=== PATIENT | female | born 1980 | race Caucasian/White ===

== ENCOUNTER 2018-03-10 04:30 | Emergency (ER) | payer OTHER ==
[2018-03-10 04:43] VITALS: RESP 18; TEMP 98.3
[2018-03-10] MEDS ORDERED: diphenhydrAMINE 50 MG CAP PO STA (05:06)
[2018-03-10] MEDS ORDERED: predniSONE 20 MG TAB PO STA (05:06)
[2018-03-10] MEDS ORDERED: FAMOTIDINE 20 MG TAB PO STA (05:06)
[2018-03-10] MEDS ORDERED: ALBUTEROL NEBULIZED 2.5 MG/3 ML INHALATION STA (05:11)
--- NOTE | 2018-03-10 05:14 | ED ---
Allergic Reaction HPI - General Chief complaint: Allergic Reaction Stated complaint: Allergic Reaction Time Seen by Provider: 03/10/18 05:06 Source: patient Mode of arrival: ambulatory Limitations: no limitations - History of Present Illness Initial Comments: Patient's a 37-year-old woman who presents to be evaluated for suspected ALLERGIC reaction. The patient states that she thinks she was exposed to mold which she has a known ALLERGY to area she started having hives to the upper trunk and neck as well as the left arm. She states that she also noted that her throat was a little scratchy in her voice was a little hoarse. She denies shortness of breath. No oral swelling. MD Complaint: allergic reaction, hives -: hour(s) Exposure: other (Possible mold exposure) Symptoms: rash, itching, hoarseness Severity: mild Treatment Prior to Arrival: none - Related Data Home Medications Medication Instructions Recorded Confirmed OXcarbazepine [Trileptal] 300 mg PO BID 04/08/14 03/10/18 Previous Rx's Medication Instructions Recorded Ibuprofen [Motrin] 600 mg PO Q8HR PRN #30 tab 07/07/14 Famotidine [Pepcid] 20 mg PO BID #14 tablet 03/10/18 diphenhydrAMINE [Benadryl] 50 mg PO QID PRN #20 capsule 03/10/18 predniSONE 20 mg PO BID #8 tab 03/10/18 Allergies Allergy/AdvReac Type Severity Reaction Status Date / Time amoxicillin Allergy Anaphylaxis Verified 03/10/18 04:43 Penicillins Allergy Anaphylaxis Verified 03/10/18 04:43 Review of Systems ROS Statement: Those systems with pertinent positive or pertinent negative responses have been documented in the HPI. ROS Other: All systems not noted in ROS Statement are negative. Constitutional: Denies: fever, chills ENT: Denies: throat pain Respiratory: Reports: wheezes. Denies: cough, dyspnea Cardiovascular: Denies: chest pain, palpitations Gastrointestinal: Denies: abdominal pain, nausea, vomiting Skin: Reports: rash Neurological: Denies: headache Past Medical History Past Medical History: Fibromyalgia Additional Past Medical History / Comment(s): chiari malformation, osteopenia, migraines, vertigo,chronic neck/shoulder pain History of Any Multi-Drug Resistant Organisms: None Reported Additional Past Surgical History / Comment(s): D&C Past Psychological History: Anxiety, Bipolar, Depression Smoking Status: Current every day smoker Past Alcohol Use History: Occasional Past Drug Use History: Marijuana General Exam Limitations: no limitations General appearance: alert, in no apparent distress Head exam: Present: atraumatic, normocephalic ENT exam: Present: normal oropharynx, mucous membranes moist Respiratory exam: Present: wheezes (Trace expiratory wheeze). Absent: respiratory distress, rales, rhonchi, stridor Cardiovascular Exam: Present: regular rate, normal rhythm, normal heart sounds. Absent: systolic murmur, diastolic murmur, rubs, gallop GI/Abdominal exam: Present: soft. Absent: tenderness, guarding, rebound Skin exam: Present: warm, dry, intact, normal color, urticaria. Absent: cyanosis, diaphoretic, erythema, vesicles, petechiae, pallor, mottled Course Vital Signs 03/10/18 03/10/18 03/10/18 04:38 05:35 05:40 Temperature 98.3 F Pulse Rate 106 H 100 100 Respiratory 18 Rate Blood Pressure 153/112 O2 Sat by Pulse 98 Oximetry 03/10/18 06:01 Temperature 98.3 F Pulse Rate 76 Respiratory 18 Rate Blood Pressure 158/95 O2 Sat by Pulse 98 Oximetry Disposition Clinical Impression: Allergic reaction Disposition: HOME SELF-CARE Condition: Good Instructions: Allergies (ED) Prescriptions: diphenhydrAMINE [Benadryl] 50 mg PO QID PRN #20 capsule PRN Reason: Itching Famotidine [Pepcid] 20 mg PO BID #14 tablet predniSONE 20 mg PO BID #8 tab Is patient prescribed a controlled substance at d/c from ED?: No Referrals: Kvng Joya MD [Primary Care Provider] - 1-2 days
[2018-03-10 06:03] VITALS: BP 158/95; PULSE 76
== END 2018-03-10 06:03 | disposition home or self-care (01) ==
LOC: EC 04:30
DX: T78.40XA Allergy, unspecified, initial encounter (principal); R06.2 Wheezing; F17.200 Nicotine dependence, unspecified, uncomplicated; Z79.899 Other long term (current) drug therapy; Z88.0 Allergy status to penicillin
CPT/HCPCS: 94640; 99283; J7512

== ENCOUNTER 2019-07-01 18:06 | Inpatient (IN) | payer MEDICAID, OTHER ==
[2019-07-01] MEDS ORDERED: SODIUM CHLORIDE 0.9% 1,000 ML IV STA ×2 (18:23)
--- NOTE | 2019-07-01 18:28 | ED ---
General Adult HPI <RitaKarl salgado - Last Filed: 07/01/19 22:29> - General Source: patient, EMS, RN notes reviewed Mode of arrival: ambulatory Limitations: no limitations <Eloy Bradley - Last Filed: 07/02/19 20:37> - General Chief complaint: Psychiatric Symptoms Stated complaint: Mental health Time Seen by Provider: 07/01/19 18:13 - History of Present Illness Initial comments: Patient is a pleasant 39-year-old female presenting to the emergency department by EMS for agitation. EMS was under the suspicion that patient had taken meth history that she provided. Patient denies taking any meth at this time and states she only drug she however would use is weed. Patient admits to not eating or drinking well for the past few days. Patient also admits to not sleeping well for the past few days. Patient also admits to being off her medications for the past month or so. Patient does have mental health history. No suicidal or homicidal thoughts. Patient does not feel that she has flight of ideas or difficulty concentrating. Patient omits to hallucinations hearing voices however is unclear what they're saying. No physical complaints. EMS provided 5 of Versed IM with improvement of symptoms. (Eloy Bradley) - Related Data Home Medications Medication Instructions Recorded Confirmed OXcarbazepine [Trileptal] 300 mg PO BID 04/08/14 07/02/19 Previous Rx's Medication Instructions Recorded Ibuprofen [Motrin] 600 mg PO Q8HR PRN #30 tab 07/07/14 Famotidine [Pepcid] 20 mg PO BID #14 tablet 03/10/18 diphenhydrAMINE [Benadryl] 50 mg PO QID PRN #20 capsule 03/10/18 predniSONE [Deltasone] 20 mg PO BID #8 tab 03/10/18 Allergies Allergy/AdvReac Type Severity Reaction Status Date / Time amoxicillin Allergy Anaphylaxis Verified 07/02/19 00:25 Penicillins Allergy Anaphylaxis Verified 07/02/19 00:25 Review of Systems ROS Other: All systems not noted in ROS Statement are negative. <RenataKarl - Last Filed: 07/01/19 22:29> ROS Other: All systems not noted in ROS Statement are negative. Constitutional: Denies: fever Eyes: Denies: eye pain ENT: Denies: ear pain Respiratory: Denies: cough Cardiovascular: Denies: chest pain Endocrine: Denies: fatigue Gastrointestinal: Denies: abdominal pain, vomiting Genitourinary: Denies: dysuria Musculoskeletal: Denies: back pain Skin: Denies: rash Neurological: Denies: weakness Psychiatric: Reports: auditory hallucinations <Eloy Bradley - Last Filed: 07/02/19 20:37> ROS Statement: Those systems with pertinent positive or pertinent negative responses have been documented in the HPI. Past Medical History Past Medical History: Fibromyalgia Additional Past Medical History / Comment(s): chiari malformation, osteopenia, migraines, vertigo,chronic neck/shoulder pain History of Any Multi-Drug Resistant Organisms: None Reported Additional Past Surgical History / Comment(s): D&C Past Psychological History: Anxiety, Bipolar, Depression Smoking Status: Current every day smoker Past Alcohol Use History: Occasional Past Drug Use History: Marijuana <Eloy Bradley - Last Filed: 07/02/19 20:37> General Exam Limitations: no limitations General appearance: alert, in no apparent distress Head exam: Present: normocephalic Eye exam: Present: normal appearance, PERRL ENT exam: Present: mucous membranes dry Neck exam: Present: normal inspection Respiratory exam: Present: normal lung sounds bilaterally Cardiovascular Exam: Present: regular rate, normal rhythm GI/Abdominal exam: Present: soft. Absent: tenderness Extremities exam: Present: normal inspection Neurological exam: Present: alert. Absent: motor sensory deficit Expanded Motor strength exam: RUE: 5, LUE: 5, RLE: 5, LLE: 5 Psychiatric exam: Present: anxious Expanded Focused psych exam: Present: restlessness, flight of ideas Skin exam: Present: normal color <Eloy Bradley - Last Filed: 07/02/19 20:37> Course Vital Signs 07/01/19 07/01/19 21:00 22:25 Temperature 97.3 F L Pulse Rate 94 90 Respiratory 22 18 Rate Blood Pressure 152/86 133/86 O2 Sat by Pulse 94 L 95 Oximetry Medical Decision Making - Lab Data Result diagrams: 07/01/19 18:53 07/01/19 18:53 <Karl Yanez - Last Filed: 07/01/19 22:29> - Lab Data Result diagrams: 07/01/19 18:53 07/01/19 18:53 <Eloy Bradley - Last Filed: 07/02/19 20:37> - Medical Decision Making I did see this patient for the purpose of following the clinical certification. (Karl Yanez) - Lab Data Lab Results 07/01/19 07/01/19 07/01/19 Range/Units 18:53 18:53 18:53 WBC 12.5 H (3.8-10.6) k/uL RBC 4.85 (3.80-5.40) m/uL Hgb 14.9 (11.4-16.0) gm/dL Hct 44.8 (34.0-46.0) % MCV 92.3 (80.0-100.0) fL MCH 30.7 (25.0-35.0) pg MCHC 33.3 (31.0-37.0) g/dL RDW 12.2 (11.5-15.5) % Plt Count 321 (150-450) k/uL Neutrophils % 83 % Lymphocytes % 10 % Monocytes % 3 % Eosinophils % 2 % Basophils % 0 % Neutrophils # 10.4 H (1.3-7.7) k/uL Lymphocytes # 1.3 (1.0-4.8) k/uL Monocytes # 0.3 (0-1.0) k/uL Eosinophils # 0.2 (0-0.7) k/uL Basophils # 0.0 (0-0.2) k/uL Sodium 137 (137-145) mmol/L Potassium 4.5 (3.5-5.1) mmol/L Chloride 102 (98-107) mmol/L Carbon Dioxide 26 (22-30) mmol/L Anion Gap 9 mmol/L BUN 18 H (7-17) mg/dL Creatinine 0.75 (0.52-1.04) mg/dL Est GFR (CKD-EPI)AfAm >90 (>60 ml/min/1.73 sqM) Est GFR (CKD-EPI)NonAf >90 (>60 ml/min/1.73 sqM) Glucose 96 (74-99) mg/dL Estimated Ave Glu mg/dL 103 Hemoglobin A1c 5.2 (4.0-6.0) % Calcium 10.3 H (8.4-10.2) mg/dL Total Bilirubin 0.6 (0.2-1.3) mg/dL AST 84 H (14-36) U/L ALT 105 H (4-34) U/L Alkaline Phosphatase 97 (38-126) U/L Total Protein 7.1 (6.3-8.2) g/dL Albumin 4.5 (3.5-5.0) g/dL Triglycerides (<150) mg/dL Cholesterol (<200) mg/dL LDL Cholesterol, Calc (0-99) mg/dL HDL Cholesterol (40-60) mg/dL TSH (0.465-4.680) mIU/L Urine Color Urine Appearance (Clear) Urine pH (5.0-8.0) Ur Specific [place] (1.001-1.035) Urine Protein (Negative) Urine Glucose (UA) (Negative) Urine Ketones (Negative) Urine Blood (Negative) Urine Nitrite (Negative) Urine Bilirubin (Negative) Ur Bilirubin Confirm (Negative) Urine Urobilinogen (<2.0) mg/dL Ur Leukocyte Esterase (Negative) Urine RBC (0-5) /hpf Urine WBC (0-5) /hpf Ur Squamous Epith Cells (0-4) /hpf Urine Mucus (None) /hpf Salicylates <1.0 mg/dL Urine Opiates Screen (NotDetected) Ur Oxycodone Screen (NotDetected) Urine Methadone Screen (NotDetected) Ur Propoxyphene Screen (NotDetected) Acetaminophen <10.0 ug/mL Ur Barbiturates Screen (NotDetected) U Tricyclic Antidepress (NotDetected) Ur Phencyclidine Scrn (NotDetected) Ur Amphetamines Screen (NotDetected) U Methamphetamines Scrn (NotDetected) U Benzodiazepines Scrn (NotDetected) Urine Cocaine Screen (NotDetected) U Marijuana (THC) Screen (NotDetected) Serum Alcohol <10 mg/dL 07/01/19 07/01/19 Range/Units 18:53 19:28 WBC (3.8-10.6) k/uL RBC (3.80-5.40) m/uL Hgb (11.4-16.0) gm/dL Hct (34.0-46.0) % MCV (80.0-100.0) fL MCH (25.0-35.0) pg MCHC (31.0-37.0) g/dL RDW (11.5-15.5) % Plt Count (150-450) k/uL Neutrophils % % Lymphocytes % % Monocytes % % Eosinophils % % Basophils % % Neutrophils # (1.3-7.7) k/uL Lymphocytes # (1.0-4.8) k/uL Monocytes # (0-1.0) k/uL Eosinophils # (0-0.7) k/uL Basophils # (0-0.2) k/uL Sodium (137-145) mmol/L Potassium (3.5-5.1) mmol/L Chloride (98-107) mmol/L Carbon Dioxide (22-30) mmol/L Anion Gap mmol/L BUN (7-17) mg/dL Creatinine (0.52-1.04) mg/dL Est GFR (CKD-EPI)AfAm (>60 ml/min/1.73 sqM) Est GFR (CKD-EPI)NonAf (>60 ml/min/1.73 sqM) Glucose (74-99) mg/dL Estimated Ave Glu mg/dL Hemoglobin A1c (4.0-6.0) % Calcium (8.4-10.2) mg/dL Total Bilirubin (0.2-1.3) mg/dL AST (14-36) U/L ALT (4-34) U/L Alkaline Phosphatase (38-126) U/L Total Protein (6.3-8.2) g/dL Albumin (3.5-5.0) g/dL Triglycerides 131 (<150) mg/dL Cholesterol 214 H (<200) mg/dL LDL Cholesterol, Calc 106 H (0-99) mg/dL HDL Cholesterol 82 H (40-60) mg/dL TSH 1.440 (0.465-4.680) mIU/L Urine Color Simin Urine Appearance Clear (Clear) Urine pH 6.0 (5.0-8.0) Ur Specific [place] 1.030 (1.001-1.035) Urine Protein 1+ H (Negative) Urine Glucose (UA) Negative (Negative) Urine Ketones 1+ H (Negative) Urine Blood Negative (Negative) Urine Nitrite Negative (Negative) Urine Bilirubin 2+ H (Negative) Ur Bilirubin Confirm (Negative) Urine Urobilinogen 2.0 (<2.0) mg/dL Ur Leukocyte Esterase Small (Negative) Urine RBC 32 H (0-5) /hpf Urine WBC 1 (0-5) /hpf Ur Squamous Epith Cells 1 (0-4) /hpf Urine Mucus Few H (None) /hpf Salicylates mg/dL Urine Opiates Screen Not Detected (NotDetected) Ur Oxycodone Screen Not Detected (NotDetected) Urine Methadone Screen Not Detected (NotDetected) Ur Propoxyphene Screen Not Detected (NotDetected) Acetaminophen ug/mL Ur Barbiturates Screen Not Detected (NotDetected) U Tricyclic Antidepress Detected H (NotDetected) Ur Phencyclidine Scrn Not Detected (NotDetected) Ur Amphetamines Screen Not Detected (NotDetected) U Methamphetamines Scrn Detected H (NotDetected) U Benzodiazepines Scrn Not Detected (NotDetected) Urine Cocaine Screen Detected H (NotDetected) U Marijuana (THC) Screen Detected H (NotDetected) Serum Alcohol mg/dL Disposition <Karl Yanez - Last Filed: 07/01/19 22:29> Is patient prescribed a controlled substance at d/c from ED?: No <Eloy Bradley - Last Filed: 07/02/19 20:37> Clinical Impression: Psychosis Disposition: TRANSFER TO PSYCH HOSP/UNIT
[2019-07-01 19:09] LABS: Basophils % (A) 0 %; Eosinophils # (A) 0.2 k/uL (0-0.7); Eosinophils % (A) 2 %; HCT 44.8 % (34.0-46.0); HGB 14.9 gm/dL (11.4-16.0); Lymphocytes # (A) 1.3 k/uL (1.0-4.8); Lymphocytes % (A) 10 %; MCH 30.7 pg (25.0-35.0); MCHC 33.3 g/dL (31.0-37.0); MCV 92.3 fL (80.0-100.0); Mean Platelet Volume 7.9; Monocytes # (A) 0.3 k/uL (0-1.0); Monocytes % (A) 3 %; Neutrophils # (A) 10.4 k/uL (1.3-7.7); Neutrophils % (A) 83 %; Platelet Count 321 k/uL (150-450); RBC 4.85 m/uL (3.80-5.40); RDW 12.2 % (11.5-15.5); WBC 12.5 k/uL (3.8-10.6)
[2019-07-01 19:16] LABS: ALT 105 U/L (4-34); AST 84 U/L (14-36); Acetaminophen <10.0 ug/mL; African American GFR (CKD) >90 (>60 ml/min/1.73 sqM); Albumin 4.5 g/dL (3.5-5.0); Alcohol <10 mg/dL; Alkaline Phosphatase 97 U/L (38-126); Anion Gap 9 mmol/L; Blood Urea Nitrogen 18 mg/dL (7-17); Calcium 10.3 mg/dL (8.4-10.2); Carbon Dioxide 26 mmol/L (22-30); Chloride 102 mmol/L (98-107); Glucose 96 mg/dL (74-99); Non-African American GFR(CKD) >90 (>60 ml/min/1.73 sqM); Potassium 4.5 mmol/L (3.5-5.1); Salicylate <1.0 mg/dL; Sodium 137 mmol/L (137-145); Total Bilirubin 0.6 mg/dL (0.2-1.3); Total Protein 7.1 g/dL (6.3-8.2)
[2019-07-01 19:57] LABS: Amphetamine Screen,Urine Not Detected (NotDetected); Barbiturate Screen,Urine Not Detected (NotDetected); Benzodiazepines Screen,Urine Not Detected (NotDetected); Cocaine Screen,Urine Detected (NotDetected); Methadone Screen, Urine Not Detected (NotDetected); Opiate Screen,Urine Not Detected (NotDetected); Oxycodone Screen, Urine Not Detected (NotDetected); Phencyclidine Screen,Urine Not Detected (NotDetected); Tricyclic Antidepressant,Urine Detected (NotDetected); Urn Cannabinoid Scrn Detected (NotDetected)
[2019-07-01 19:59] LABS: Mucus,Urine Few /hpf; RBC,Urine 32 /hpf (0-5); Squamous Epithelial Cell,Urine 1 /hpf (0-4); WBC,Urine 1 /hpf (0-5)
[2019-07-01 20:17] LABS: Appearance,Urine Clear (Clear); Bilirubin,Urine 2+ (Negative); Color,Urine Amber; Glucose,Urine (UA) Negative (Negative); Ketones,Urine 1+ (Negative); Protein,Urine 1+ (Negative)
[2019-07-01 20:18] LABS: Blood,Urine Negative (Negative); Leukocyte Esterase,Urine Small (Negative); Nitrite,Urine Negative (Negative)
[2019-07-01] MEDS ORDERED: LORazepam 2 MG/ML INJ IV STA (21:51)
[2019-07-01] MEDS ORDERED: MAGNESIUM HYDROXIDE 2,400 MG/10 ML CUP PO PRN (23:18)
[2019-07-01] MEDS ORDERED: ZIPRASIDONE 20 MG VIAL IM PRN (23:18)
[2019-07-01] MEDS ORDERED: LORazepam 2 MG/ML INJ IM PRN (23:21)
[2019-07-02] MEDS: NICOTINE 14MG/24HR PATCH TRANSDERM SCH (08:06)
[2019-07-02] MEDS ORDERED: IPRATROPIUM-ALBUTEROL 3 ML NEB INHALATION PRN (11:32)
[2019-07-02] MEDS: LORazepam 1 MG TAB PO PRN ×2 (12:05→18:47)
[2019-07-02] MEDS: ARIPiprazole 5 MG TAB PO SCH (12:29)
--- NOTE | 2019-07-02 12:41 | P.HP ---
Psychiatric H&P - . H&P Date: 07/02/19 History & Physical: Allergies Allergy/AdvReac Type Severity Reaction Status Date / Time amoxicillin Allergy Anaphylaxis Verified 07/02/19 00:25 Penicillins Allergy Anaphylaxis Verified 07/02/19 00:25 Vital Signs Temp 98.5 F 07/01/19 23:32 Pulse 78 07/01/19 23:32 Resp 14 07/01/19 23:32 BP 104/68 07/01/19 23:32 Pulse Ox 95 07/01/19 22:25 Intake & Output 07/01/19 07/02/19 07/02/19 18:59 06:59 18:59 Weight 54.431 kg Laboratory Last Values WBC 12.5 k/uL (3.8-10.6) H 07/01/19 18:53 RBC 4.85 m/uL (3.80-5.40) 07/01/19 18:53 Hgb 14.9 gm/dL (11.4-16.0) 07/01/19 18:53 Hct 44.8 % (34.0-46.0) 07/01/19 18:53 MCV 92.3 fL (80.0-100.0) 07/01/19 18:53 MCH 30.7 pg (25.0-35.0) 07/01/19 18:53 MCHC 33.3 g/dL (31.0-37.0) 07/01/19 18:53 RDW 12.2 % (11.5-15.5) 07/01/19 18:53 Plt Count 321 k/uL (150-450) 07/01/19 18:53 Neutrophils % 83 % 07/01/19 18:53 Lymphocytes % 10 % 07/01/19 18:53 Monocytes % 3 % 07/01/19 18:53 Eosinophils % 2 % 07/01/19 18:53 Basophils % 0 % 07/01/19 18:53 Neutrophils # 10.4 k/uL (1.3-7.7) H 07/01/19 18:53 Lymphocytes # 1.3 k/uL (1.0-4.8) 07/01/19 18:53 Monocytes # 0.3 k/uL (0-1.0) 07/01/19 18:53 Eosinophils # 0.2 k/uL (0-0.7) 07/01/19 18:53 Basophils # 0.0 k/uL (0-0.2) 07/01/19 18:53 Sodium 137 mmol/L (137-145) 07/01/19 18:53 Potassium 4.5 mmol/L (3.5-5.1) 07/01/19 18:53 Chloride 102 mmol/L (98-107) 07/01/19 18:53 Carbon Dioxide 26 mmol/L (22-30) 07/01/19 18:53 Anion Gap 9 mmol/L 07/01/19 18:53 BUN 18 mg/dL (7-17) H 07/01/19 18:53 Creatinine 0.75 mg/dL (0.52-1.04) 07/01/19 18:53 Est GFR (CKD-EPI)AfAm >90 (>60 ml/min/1.73 sqM) 07/01/19 18:53 Est GFR (CKD-EPI)NonAf >90 (>60 ml/min/1.73 sqM) 07/01/19 18:53 Glucose 96 mg/dL (74-99) 07/01/19 18:53 Calcium 10.3 mg/dL (8.4-10.2) H 07/01/19 18:53 Total Bilirubin 0.6 mg/dL (0.2-1.3) 07/01/19 18:53 AST 84 U/L (14-36) H 07/01/19 18:53 ALT 105 U/L (4-34) H 07/01/19 18:53 Alkaline Phosphatase 97 U/L (38-126) 07/01/19 18:53 Total Protein 7.1 g/dL (6.3-8.2) 07/01/19 18:53 Albumin 4.5 g/dL (3.5-5.0) 07/01/19 18:53 Triglycerides 131 mg/dL (<150) 07/01/19 18:53 Cholesterol 214 mg/dL (<200) H 07/01/19 18:53 LDL Cholesterol, Calc 106 mg/dL (0-99) H 07/01/19 18:53 HDL Cholesterol 82 mg/dL (40-60) H 07/01/19 18:53 TSH 1.440 mIU/L (0.465-4.680) 07/01/19 18:53 Urine Color Simin 07/01/19: Urine Appearance Clear (Clear) 07/01/19: Urine pH 6.0 (5.0-8.0) 07/01/19 19: Ur Specific [place] 1.030 (1.001-1.035) 07/01/19 19: Urine Protein 1+ (Negative) H 07/01/19: Urine Glucose (UA) Negative (Negative) 07/01/19: Urine Ketones 1+ (Negative) H 07/01/19: Urine Blood Negative (Negative) 07/01/19: Urine Nitrite Negative (Negative) 07/01/19: Urine Bilirubin 2+ (Negative) H 07/01/19: Urine Urobilinogen 2.0 mg/dL (<2.0) 07/01/19: Ur Leukocyte Esterase Small (Negative) 07/01/19: Urine RBC 32 /hpf (0-5) H 07/01/19: Urine WBC 1 /hpf (0-5) 07/01/19 19: Ur Squamous Epith Cells 1 /hpf (0-4) 07/01/19 19: Urine Mucus Few /hpf (None) H 07/01/19: Salicylates <1.0 mg/dL 07/01/19 18:53 Urine Opiates Screen Not Detected (NotDetected) 07/01/19 19: Ur Oxycodone Screen Not Detected (NotDetected) 07/01/19 19: Urine Methadone Screen Not Detected (NotDetected) 07/01/19 19: Ur Propoxyphene Screen Not Detected (NotDetected) 07/01/19 19: Acetaminophen <10.0 ug/mL 07/01/19 18:53 Ur Barbiturates Screen Not Detected (NotDetected) 07/01/19 19: U Tricyclic Antidepress Detected (NotDetected) H 07/01/19 19: Ur Phencyclidine Scrn Not Detected (NotDetected) 07/01/19 19: Ur Amphetamines Screen Not Detected (NotDetected) 07/01/19 19: U Methamphetamines Scrn Detected (NotDetected) H 07/01/19 19:28 U Benzodiazepines Scrn Not Detected (NotDetected) 07/01/19 19:28 Urine Cocaine Screen Detected (NotDetected) H 07/01/19 19:28 U Marijuana (THC) Screen Detected (NotDetected) H 07/01/19 19:28 Serum Alcohol <10 mg/dL 07/01/19 18:53 07/02/19 11:35 IDENTIFYING DATA: Patient is a 39-year-old female , currently engaged living with her fianc and apartment and has 2 kids and is unemployed. HPI: Patient presented to the hospital yesterday via EMS and was found to be agitated at home and allegedly was using meth. Patient was also apparently having poor eating and drinking and self-care and not sleeping and has been off her medications for over month. Patient was petitioned by the Chief Procurement Officer that was called initially to the house and boyfriend was apparently restraining patient as she was attempting to harm herself and acting bizarre and delusional. Patient was seen today by verse writer and patient appeared to be bizarre, responding to internal stimuli and difficult to redirect. Patient was wandering the hallways and attempting to open doors. Patient was also carrying pictures and a letter from her fianc and was preoccupied with pictures during the interview and was noted to be emotionally labile, tearful as well. Patient denies any problems with her mood denies any depression and anxiety at this time. Patient was tangential, loose in associations and disorganized in terms of thought co ntent. Patient states that she "freaked out at home" and states that she was "out of it". Patient also spoke about "moving a lot" and was also preoccupied with her apartment in [place]. Patient also told verse writer that she can't "go on vacation anymore". Patient denied any drug use at this time however her UDS was positive for TCAs, methamphetamine, cocaine and marijuana. She did endorse smoking cigarettes daily. Patient denies any suicidal or homicidal ideations intent or plan. At this time patient denies any auditory or visual hallucinations. PAST PSYCHIATRIC HISTORY: Patient has a history of psychosis and was last hospitalized at [facility] in 2014. Patient was previously on Trileptal according to EMR. Patient was referred to [facility] and [facility] however did not show/follow-up. Patient denies any history of suicide attempts PMH: Patient has a history of fibromyalgia, Chiari malformation, migraines, vertigo. ALLERGIES: as per EMR CHEMICAL DEPENDENCY HISTORY: as per HPI FAMILY PSYCHIATRIC/SUBSTANCE USE HISTORY: She states that "everyone in my family has problems" SOCIAL HISTORY: Patient was born and raised in [facility] and moved to [place]. Patient was unable to answer questions related to her history of education and also her legal problems. Patient allegedly has 2 kids and is currently engaged and unemployed. She lives with her fianc and apartment MENTAL STATUS EXAM: General Appearance: Patient appears to be older than stated age is alert, bizarre and difficult to redirect. Patient appears to have poor hygiene and grooming. Poor eye contact. Oriented hospital gown. Behavior: Patient is seated without any agitated behavior. Bizarre behavior, inappropriate at times. Responding to internal stimuli. Speech: Patient's speech is fluent and nonpressured. Mood/Affect: Patient reports their mood is "fine", affect is congruent and constricted. Suicidality/Homicidality: Patient denies having any homicidal ideation intent or plan. Denies any suicidal ideations intent or plan Perceptions: Patient denies any visual hallucinations and denies any auditory hallucinations Though content/process: Loose associations, disorganized thought process and content. Inappropriate answers. Tangential. Memory and concentration: AOX3, poor attention span. Cannot spell "WORLD" backwards Judgment and insight: poor STRENGTHS/WEAKNESSES: strength is that patient is resilient. Weakness is that patient has poor judgment and is impulsive INTELLECT: average IMPRESSIONS: Psychosis unspecified Methamphetamine abuse Cocaine abuse Marijuana abuse Nicotine dependence PLAN: -Patient is admitted under involuntary status to [facility] for stabilization of psychiatric symptoms and safety. A second certification was completed and along with petition will be filed for court. -Medications : Will start patient on Abilify 5 mg daily for psychosis/mood stabilization. We'll continue to titrate up as tolerated/needed. We will offer patient a long-acting injection prior to discharge to ensure compliance. Started trazodone 25 mg daily at bedtime for insomnia/mood. -Ativan and Geodon PRN for agitation/aggression -Patient was counselled on substance abuse however patient denied using any substances at this time. -Patient was informed of the risks, benefits and side effects of the medication and patient verbally consented to taking the medications. Patient signed med consent form and was placed in chart. -Internal Medicine consult to perform medical evaluation and physical. -NRT - nicotine patch -SW on board for discharge planning. Encourage patient to participate in groups to work on coping skills. 07/02/19 12:30
--- NOTE | 2019-07-02 15:50 | P.CONS ---
History of Present Illness - Reason for Consult Medical clearance - History of Present Illness 47-year-old male was admitted to second floor for treatment of acute psychosis. Patient denied any chest pain chance of breath nausea vomiting. Patient denied any fever chills. Patient denied any dysuria cough. Patient had mild hematuria because of Repeating UA. Patient denied any drug abuse although his drug screen is positive for cocaine and amphetamines and marijuana. Patient does have COPD history does have minimal wheezing on exam continues to smoke 1-2 packs of cigarettes a day patient does have a nicotine patch Review of Systems REVIEW OF SYSTEMS: CONSTITUTIONAL: No fever, no malaise, no fatigue. HEENT: No recent visual problems or hearing problems. Denied any sore throat. CARDIOVASCULAR: No chest pain, orthopnea, PND, no palpitations, no syncope. PULMONARY: No shortness of breath, no cough, no hemoptysis. GASTROINTESTINAL: No diarrhea, no nausea, no vomiting, no abdominal pain. NEUROLOGICAL: No headaches, no weakness, no numbness. HEMATOLOGICAL: Denies any bleeding or petechiae. GENITOURINARY: Denies any burning micturition, frequency, or urgency. MUSCULOSKELETAL/RHEUMATOLOGICAL: Denies any joint pain, swelling, or any muscle pain. ENDOCRINE: Denies any polyuria or polydipsia. The rest of the 14-point review of systems is negative. Past Medical History Past Medical History: Fibromyalgia Additional Past Medical History / Comment(s): chiari malformation, osteopenia, migraines, vertigo,chronic neck/shoulder pain History of Any Multi-Drug Resistant Organisms: None Reported Additional Past Surgical History / Comment(s): D&C Past Psychological History: Anxiety, Bipolar, Depression Smoking Status: Current every day smoker Past Alcohol Use History: Occasional Past Drug Use History: Marijuana Medications and Allergies Home Medications Medication Instructions Recorded Confirmed Type OXcarbazepine [Trileptal] 300 mg PO BID 04/08/14 07/02/19 History Ibuprofen [Motrin] 600 mg PO Q8HR PRN #30 tab 07/07/14 07/02/19 Rx Famotidine [Pepcid] 20 mg PO BID #14 tablet 03/10/18 07/02/19 Rx diphenhydrAMINE [Benadryl] 50 mg PO QID PRN #20 capsule 03/10/18 07/02/19 Rx predniSONE [Deltasone] 20 mg PO BID #8 tab 03/10/18 07/02/19 Rx Allergies Allergy/AdvReac Type Severity Reaction Status Date / Time amoxicillin Allergy Anaphylaxis Verified 07/02/19 00:25 Penicillins Allergy Anaphylaxis Verified 07/02/19 00:25 Physical Exam Vitals: Vital Signs Temp Pulse Pulse Resp BP BP Pulse Ox 07/01/19 23:32 98.5 F 78 14 104/68 07/01/19 22:25 90 18 133/86 95 07/01/19 21:00 97.3 F L 94 22 152/86 94 L Intake and Output 07/01/19 07/02/19 07/02/19 22:59 06:59 14:59 Other: Weight 54.431 kg PHYSICAL EXAMINATION: GENERAL: The patient is alert and oriented x3, not in any acute distress. Well developed, well nourished. HEENT: Pupils are round and equally reacting to light. EOMI. No scleral icterus. No conjunctival pallor. Normocephalic, atraumatic. No pharyngeal erythema. No thyromegaly. CARDIOVASCULAR: S1 and S2 present. No murmurs, rubs, or gallops. PULMONARY: Minimal expiratory wheezing ABDOMEN: Soft, nontender, nondistended, normoactive bowel sounds. No palpable organomegaly. MUSCULOSKELETAL: No joint swelling or deformity. EXTREMITIES: No cyanosis, clubbing, or pedal edema. NEUROLOGICAL: Gross neurological examination did not reveal any focal deficits. SKIN: No rashes. Results CBC & Chem 7: 07/01/19 18:53 07/01/19 18:53 Labs: Abnormal Lab Results - Last 24 Hours (Table) 07/01/19 07/01/19 07/01/19 Range/Units 18:53 18:53 18:53 WBC 12.5 H (3.8-10.6) k/uL Neutrophils # 10.4 H (1.3-7.7) k/uL BUN 18 H (7-17) mg/dL Calcium 10.3 H (8.4-10.2) mg/dL AST 84 H (14-36) U/L ALT 105 H (4-34) U/L Cholesterol 214 H (<200) mg/dL LDL Cholesterol, Calc 106 H (0-99) mg/dL HDL Cholesterol 82 H (40-60) mg/dL Urine Protein (Negative) Urine Ketones (Negative) Urine Bilirubin (Negative) Urine RBC (0-5) /hpf Urine Mucus (None) /hpf U Tricyclic Antidepress (NotDetected) U Methamphetamines Scrn (NotDetected) Urine Cocaine Screen (NotDetected) U Marijuana (THC) Screen (NotDetected) 07/01/19 Range/Units 19:28 WBC (3.8-10.6) k/uL Neutrophils # (1.3-7.7) k/uL BUN (7-17) mg/dL Calcium (8.4-10.2) mg/dL AST (14-36) U/L ALT (4-34) U/L Cholesterol (<200) mg/dL LDL Cholesterol, Calc (0-99) mg/dL HDL Cholesterol (40-60) mg/dL Urine Protein 1+ H (Negative) Urine Ketones 1+ H (Negative) Urine Bilirubin 2+ H (Negative) Urine RBC 32 H (0-5) /hpf Urine Mucus Few H (None) /hpf U Tricyclic Antidepress Detected H (NotDetected) U Methamphetamines Scrn Detected H (NotDetected) Urine Cocaine Screen Detected H (NotDetected) U Marijuana (THC) Screen Detected H (NotDetected) Assessment and Plan Plan: -Acute psychosis: Management as per primary service -COPD with mild acute exacerbation cessation counseling was provided nicotine patch will be ordered. Patient was started on inhaled steroids and inhalational treatments will not require any systemic steroids at this time -Marijuana, cocaine abuse: Counseling was provided -RBC in the urine we'll repeat, repeat urine analysis again the only few RBC no evidence of "hematuria urinary tract infection -Leukocytosis reactive without any evidence of infection -Mild elevation of liver enzymes we'll repeat them again tomorrow no further intervention at this time we'll also obtain hepatitis panel
[2019-07-02 18:14] LABS: Hemoglobin A1C 5.2 % (4.0-6.0)
[2019-07-02] MEDS: SYMBICORT 160-4.5 MCG INHALER INHALATION SCH (21:19)
[2019-07-02] MEDS: traZODone HCL 50 MG TAB PO SCH (21:19)
[2019-07-03 01:50] LABS: Hepatitis A Antibody IgM Non-Reactive (Non-Reactive); Hepatitis B Core IgM Non-Reactive (Non-Reactive); Hepatitis B Surface Antigen Non-Reactive (Non-Reactive); Hepatitis C IgG Antibody Reactive (Non-Reactive)
[2019-07-03 08:02] LABS: ALT 154 U/L (4-34); AST 118 U/L (14-36); African American GFR (CKD) >90 (>60 ml/min/1.73 sqM); Alkaline Phosphatase 88 U/L (38-126); Anion Gap 7 mmol/L; Blood Urea Nitrogen 16 mg/dL (7-17); Calcium 9.3 mg/dL (8.4-10.2); Carbon Dioxide 21 mmol/L (22-30); Chloride 108 mmol/L (98-107); Glucose 85 mg/dL (74-99); Non-African American GFR(CKD) >90 (>60 ml/min/1.73 sqM); Potassium 4.5 mmol/L (3.5-5.1); Sodium 136 mmol/L (137-145); Total Bilirubin 0.9 mg/dL (0.2-1.3); Total Protein 6.5 g/dL (6.3-8.2)
[2019-07-03] MEDS: NICOTINE 14MG/24HR PATCH TRANSDERM SCH (09:17)
[2019-07-03] MEDS: ARIPiprazole 5 MG TAB PO SCH (09:17)
[2019-07-03] MEDS: LORazepam 1 MG TAB PO PRN (09:24)
[2019-07-03] MEDS ORDERED: ARIPiprazole 15 MG TAB PO ONE (10:17)
--- NOTE | 2019-07-03 18:26 | PN ---
PROGRESS NOTE DATE OF SERVICE: 07/03/2019 CHIEF COMPLAINT: The patient was agitated. She had poor self-care. She had bizarre and delusional thoughts. She was needing to be restrained by her fiance for efforts to harm herself. INTERVAL HISTORY: The patient has continued to struggle. She had a lot of difficulties yesterday through the day. She would roam the halls. She would get into episodes where she was yelling. At times she would become quite intense with swearing at others. She received a p.r.n. of p.o. Ativan at 1849 hours. She will walk in the halls. She will often sit on the floor near the exit doors and will continue to make statements that she is just waiting to be discharged. She carries a paper bag of some of her possessions, stating to staff that she is ready to leave. She was in one group yesterday briefly though did not engage in any way. She slept fairly well last night. Today she has been up. She continues about the same in comparison to how she was presenting yesterday. Her thoughts are marginally clear. She seems a little more organized in her thoughts. She can speak in a coherent manner, though most of what she says is disconnected from the subject at hand. Overall she seems a little less labile in her mood. When I talked to her, she was not able to provide much reliable information. She says that she had one psychiatric hospitalization about 6 years ago though did not provide any details. She acknowledged that she had a past history of drug use, though says she has not had any street drug use in the last 20 years. She acknowledged that she starting using drugs around age 8 and used them through all her teenage years. When I asked her what behavior she had prior to coming into the hospital which was felt to be a threat to herself, she said she was punching holes in the wall. She notes that she has been followed through [facility] and has seen Dr. Escobar. She said the last time she saw him was in early May. I had a contact with Dr. Escobar, who indicated that the patient is closed from their services and that she has not been seen in an extended period of time. The patient herself indicated that she has been diagnosed with bipolar disorder. When I asked her about her urine drug screen which was positive for methamphetamines, she was unable to provide any information. She says she is not aware that she would have taken any methamphetamines. The same is true for her being positive for cocaine. She did acknowledge that she smokes marijuana on a regular basis though did not provide much information beyond that. I asked her about her home situation. 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 She tolerates her psychotropic medication. MENTAL STATUS EXAMINATION: Patient was unkempt in appearance. Eye contact was fair. She was restless. She talked in a somewhat soft monotone voice. She answered questions with brief responses for the most part. Her answers were more phrases rather than complete sentences. Much of what she said was disconnected from questions asked. She was able to respond to some questions with fairly appropriate responses, though then typically she might continue to talk and veer off to tangential subjects. Her main focus was that she was ready to be out of the hospital. Her affect was constricted, her mood down. She was moderately distressed. She continued to show significant disorganization of thoughts. At one point she came to the door after our meeting and made some random comments that made little sense. She seemed to be oriented to the immediate environment and current circumstances. ASSESSMENT: The patient appears to have a diagnosis of bipolar disorder and substance abuse/dependence, including methamphetamine, cocaine and marijuana. There are no sources of reliable information at this time, though it may be critical to get her fiance in for a family meeting as soon as possible. I will increase the patient's Abilify to 15 mg twice a day for her significant acute psychosis. I made a limited effort to review medication issues with the patient to the extent that she seemed to be able to comprehend. We will focus on stabilization and discharge planning. MMSALVATORE / HERLINDA: [id number] /
[2019-07-03] MEDS: SYMBICORT 160-4.5 MCG INHALER INHALATION SCH (21:15)
[2019-07-03] MEDS: traZODone HCL 50 MG TAB PO SCH (21:15)
[2019-07-03] MEDS: ARIPiprazole 15 MG TAB PO SCH (21:15)
[2019-07-04] MEDS: ARIPiprazole 15 MG TAB PO SCH ×2 (09:19→20:56)
[2019-07-04] MEDS: NICOTINE 14MG/24HR PATCH TRANSDERM SCH (09:23)
--- NOTE | 2019-07-04 09:40 | PN ---
PROGRESS NOTE DATE OF SERVICE: 07/04/2019. CHIEF COMPLAINT: The patient was agitated. She had poor self care. She had bizarre and delusional thoughts. She was needing to be restrained by her fiance for efforts to harm herself. INTERVAL HISTORY: The patient continues to struggle. She seemed to be mired in some grieving issues. Last evening she wandered about some. She tends to keep to herself. She has not attended groups. She does not really interact with staff to be able to talk about some of the things that are distressing her. She slept fairly well last night today she has been up. She comes out in the day area. Her mood is quite down. She is tearful. She makes references to some grief issues, though she did not really talk about it to be clear what the issues were. Overall she seems to be just a little more connected to her current situation and less caught up in the delusional and disorganized thinking that has been prominent. She appears to tolerate her psychotropic medications. MENTAL STATUS: Patient was quite restless she gave poor eye contact. She was tearful throughout the interview. Her affect was intense. She was anxious. Her mood was depressed. She was significantly distressed. Overall, her thoughts seemed to be a little more clear and she was a little more direct in her communication. She did not make reference to any thoughts that were outside of her current situation. This may be an indication her thought process is beginning to clear. She was oriented and alert. ASSESSMENT: I will continue the current diagnosis and treatment plan. The patient will continue Abilify 15 mg twice a day. It is noteworthy when I reviewed medication issues with the patient she said she was comfortable taking the medication and would cooperate with all aspects of care. She said that spontaneously without my making references to any of that, which may be another sign of some progress. We will continue to focus on stabilization and discharge planning. MMODL / IJN: [id number] /
[2019-07-04] MEDS: LORazepam 1 MG TAB PO PRN (19:13)
[2019-07-04 20:23] LABS: Glucose,Whole Blood 103 mg/dL (75-99)
[2019-07-04] MEDS: SYMBICORT 160-4.5 MCG INHALER INHALATION SCH (20:57)
[2019-07-04] MEDS: traZODone HCL 50 MG TAB PO SCH (20:57)
[2019-07-05 06:33] LABS: Glucose,Whole Blood 88 mg/dL (75-99)
[2019-07-05] MEDS: NICOTINE 14MG/24HR PATCH TRANSDERM SCH (08:06)
[2019-07-05] MEDS: ARIPiprazole 15 MG TAB PO SCH ×2 (08:06→20:21)
--- NOTE | 2019-07-05 10:40 | P.PN ---
Progress Note - Text Interval history: The patient is found in the hallway. She is standing in the corner staring up at the mere in the ceiling. It appears she been doing that for several minutes. She is caring a bag of her belongings. She follows me to an interview room. The prior notes were reviewed. It appears that her urine drug screen was positive for marijuana cocaine and methamphetamine. She was brought in with symptoms of psychosis and concerns that she might injure herself. The patient states today that she wants her boyfriend accompany corrupt and she states she is leaving. We discussed that she requires further evaluation. She becomes distraught and tearful. She does admit that she was having "unbelievable thoughts" prior to admission. She does still appear psychotic but lacks insight into the residual psychosis. Mental status exam: The patient is a very thin female appearing her stated age. She is dressed in her own clothing she has a disheveled appearance. Eye contact is intermittent she is tearful throughout the session. She continues to demonstrate evidence of psychosis although she is guarded and tries to deny experiencing no symptoms. She demonstrates no verbal or physical aggressiveness but time she does appear irritable. She is reporting no suicidal or homicidal ideation she blanketly denies having any symptoms. Again insight and judgment are impaired. She demonstrates no repetitive involuntary movements. Affect is labile during the session. Plan: The patient is demonstrating continued symptoms of psychosis and mood lability. We will continue the Abilify as written. I did review her lab values. Her transaminases have been elevated her hepatitis C screening was reactive. Based on today's evaluation I do not feel she is optimally equipped to deal with a hepatitis C diagnosis discussion. If she demonstrates appropriate clinical improvement tomorrow we will discuss her lab results. We will continue to assess her for safety and she is encouraged to continue participating the milieu.
[2019-07-05] MEDS: NICOTINE 21MG/24HR PATCH TRANSDERM SCH (11:27)
[2019-07-05 13:44] LABS: Glucose,Whole Blood 96 mg/dL (75-99)
[2019-07-05] MEDS: SYMBICORT 160-4.5 MCG INHALER INHALATION SCH ×3 (16:12→20:21)
[2019-07-05 20:17] LABS: Glucose,Whole Blood 115 mg/dL (75-99)
[2019-07-05] MEDS: traZODone HCL 50 MG TAB PO SCH (20:21)
[2019-07-05] MEDS: LORazepam 1 MG TAB PO PRN (20:26)
[2019-07-05] MEDS: ACETAMINOPHEN TAB 325 MG TAB PO PRN (20:52)
[2019-07-06] MEDS: NICOTINE 21MG/24HR PATCH TRANSDERM SCH (07:23)
[2019-07-06 07:48] LABS: Glucose,Whole Blood 84 mg/dL (75-99)
[2019-07-06] MEDS: ARIPiprazole 15 MG TAB PO SCH ×3 (08:49→20:23)
--- NOTE | 2019-07-06 11:46 | P.PN ---
Progress Note - Text Interval history: The patient is found in her room she follows me to an interview room. As she approached interview room she was holding her face with her hands and crying. She cried throughout the entire session. She states that she is not doing very well. She continues to ask numerous times if I can discharge her. We reviewed her psychotropic medication she has no questions. She had a visit from her boyfriend last evening and expects that he will visit this evening. She states that she slept throughout the night staff reported she slept 5 hours she indicates that she ate all of her meal staff reported that she ate 25% of her breakfast. Mental status exam: The patient is a thin female appearing older than her stated age she has a disheveled appearance she is dressed in her own clothing. She is tearful throughout the entire session. Thought process is not well organized she demonstrates some psychomotor slowing. She reports no suicidal or homicidal thoughts she quickly denies having any psychiatric symptoms however she is an impaired historian. Insight and judgment are poor. She demonstrates no verbal or physical aggressiveness she demonstrates no involuntary repetitive movements. Plan: The patient will continue on her current psychotropic medication. She requires further psychiatric hospitalization to stabilize. We will monitor for safety and encourage participation in the milieu.
[2019-07-06 11:59] LABS: Glucose,Whole Blood 93 mg/dL (75-99)
[2019-07-06] MEDS: LORazepam 1 MG TAB PO PRN ×2 (12:00→21:50)
[2019-07-06] MEDS: MAG HYDROX/AL HYDROX/SIMETH 30 ML CUP PO PRN (18:30)
[2019-07-06] MEDS: SYMBICORT 160-4.5 MCG INHALER INHALATION SCH ×2 (20:02→20:24)
[2019-07-06 20:15] LABS: Glucose,Whole Blood 88 mg/dL (75-99)
[2019-07-06] MEDS: traZODone HCL 50 MG TAB PO SCH (20:23)
[2019-07-07 07:51] LABS: Glucose,Whole Blood 84 mg/dL (75-99)
[2019-07-07] MEDS: NICOTINE 21MG/24HR PATCH TRANSDERM SCH (08:45)
[2019-07-07] MEDS: ARIPiprazole 15 MG TAB PO SCH (08:45)
[2019-07-07] MEDS: LORazepam 1 MG TAB PO PRN (09:47)
--- NOTE | 2019-07-07 12:06 | P.PN ---
Progress Note - Text Progress Note Date: 07/07/19 Interval History: Patient was seen acting bizarrely in the hallway and speaking to a picture on the wall and was initially hesitant to speak with va underwriter however was in the end directable. Patient continues to be responding to internal stimuli and is illogical and has loose associations. Patient rambles and continues to display poor insight and judgment with regards to her treatment. Patient has been taking her medications Abilify 15 mg twice a day. She continues to be focused on discharge and states that she wants to be at home so she can eat "[employer] with my fianc". Patient was also labile during the interview and was yelling at va underwriter and was tearful when she found out that she could not be discharged today. Patient spoke of hearing voices however does not know what they're saying to her. She states that she is sleeping through the night and has an increased appetite. At this time patient denies any suicidal or homical ideations, intent or plan. Patient denies any visual hallucinations. Patient denies any side effects from the medications and has been compliant with meds. Mental Status Exam: General Appearance: Patient appears to be older than stated age is alert, bizarre and difficult to redirect. Patient appears to have improving hygiene and grooming. Behavior: Patient is seated without any agitated behavior. Bizarre behaviors, Responding to internal stimuli. Emotionally labile. Speech: Patient's speech is fluent and nonpressured. Mood/Affect: Patient reports their mood is "fine", affect is incongruent and labile. Suicidality/Homicidality: Patient denies having any homicidal ideation intent or plan. Denies any suicidal ideations intent or plan Perceptions: Patient denies any visual hallucinations and admits to auditory hallucinations. Though content/process: Loose associations, illogical, disorganized thought process and content. Tangential. Memory and concentration: AOX3, poor attention span. Judgment and insight: poor Assessment Psychosis unspecified Methamphetamine abuse Cocaine abuse Marijuana abuse Nicotine dependence Plan: -Patient continues to meet criteria for inpatient psychiatric admission for symptom stabilization and safety. Patient has signed treatment deferral papers on 07/04. Patient refused to sign for medication consent -Medications: Discontinuing Abilify at this time due to ineffectiveness and will replace with Invega 3 mg daily at bedtime for psychosis/mood stabilization. Will also discontinue Ativan at this time as patient may be becoming more dependent towards it and seeking it. -When necessary Yi for agitation/aggression. -NRT - nicotine patch -SW on board for discharge planning. Once patient clears more psychiatrically in terms of her symptoms, will speak with patient about options for substance abuse rehab versus community treatment for substance use.
[2019-07-07] MEDS ORDERED: risperiDONE ODT 1 MG TAB PO SCH (21:00)
[2019-07-07] MEDS: PALIPERIDONE 3 MG TAB.ER.24 PO SCH (21:08)
[2019-07-07] MEDS: SYMBICORT 160-4.5 MCG INHALER INHALATION SCH (21:09)
[2019-07-08] MEDS: NICOTINE 21MG/24HR PATCH TRANSDERM SCH (08:42)
--- NOTE | 2019-07-08 11:37 | P.PN ---
Progress Note - Text Progress Note Date: 07/08/19 Interval History: Patient was seen acting bizarrely in the hallway this morning as she was holding her bedroom door shut from the outside. Patient responded to her name however appeared to be somewhat confused and difficult to redirect to speak with scientific writer in the office. Patient appeared to be responding to internal stimuli less this morning and had a mild improvement in terms of her thought process/content which was mildly more organized today. Patient was less emotionally labile during the interview however did state that she had a "feeling that Jason was here" and also stated that she wanted to go to [place] on vacation with him. Patient was not focused on discharge today and was reassured when scientific writer told her about speaking to her fianc yesterday and that he is on board with her treatment plan. She states that she is sleeping through the night and has a fair appetite. At this time patient denies any suicidal or homical ideations, intent or plan. Patient denies any visual hallucinations or any auditory hallucinations. Patient denies any side effects from the medications and has been compliant with meds. Mental Status Exam: General Appearance: Patient appears to be older than stated age is alert, bizarre and difficult to redirect. Patient appears to have improving hygiene and grooming. Behavior: Patient is seated without any agitated behavior. Bizarre behaviors, improvement in Responding to internal stimuli. Speech: Patient's speech is fluent and nonpressured. Mood/Affect: Patient reports their mood is "fine", affect is incongruent Suicidality/Homicidality: Patient denies having any homicidal ideation intent or plan. Denies any suicidal ideations intent or plan Perceptions: Patient denies any visual hallucinations and denies any auditory hallucinations. Though content/process: Improvement in thought process and content. Tangential. Bizarre at times. Memory and concentration: AOX3, poor attention span. Judgment and insight: poor Assessment Psychosis unspecified Methamphetamine abuse Cocaine abuse Marijuana abuse Nicotine dependence Plan: -Patient continues to meet criteria for inpatient psychiatric admission for symptom stabilization and safety. Patient has signed treatment deferral papers on 07/04. Patient refused to sign for medication consent -Medications: Continue with Invega 3 mg daily at bedtime for psychosis/mood stabilization. We'll consider increasing tomorrow -When necessary Geodon for agitation/aggression. -NRT - nicotine patch -SW on board for discharge planning. Once patient clears more psychiatrically in terms of her symptoms, will speak with patient about options for substance abuse rehab versus community treatment for substance use. Human Resources Clerk spoke with patient's dom yesterday as he came to the unit to speak to scientific writer. Human Resources Clerk informed him of the treatment goals and plan along with discussion about medications and addressed his concerns and answered questions and dom will be encouraging patient to continue with treatment and taking medications and also will be visiting patient amada.
[2019-07-08 13:36] VITALS: BMI 18.5
[2019-07-08] MEDS: SYMBICORT 160-4.5 MCG INHALER INHALATION SCH (17:39)
[2019-07-08] MEDS: MAG HYDROX/AL HYDROX/SIMETH 30 ML CUP PO PRN (17:40)
[2019-07-08] MEDS: PALIPERIDONE 3 MG TAB.ER.24 PO SCH (20:35)
[2019-07-09] MEDS: MAG HYDROX/AL HYDROX/SIMETH 30 ML CUP PO PRN (08:46)
[2019-07-09] MEDS: NICOTINE 21MG/24HR PATCH TRANSDERM SCH (08:46)
--- NOTE | 2019-07-09 11:36 | P.PN ---
Progress Note - Text Progress Note Date: 07/09/19 Interval History: Patient was seen lying in her bed this morning and was directable and agreeable to speak to telegraphic typewriter operator in the office. Patient appeared to be tired and states that she had some nightmares last night which affected her sleep however states that she did go to bed at an appropriate time and was feeling tired this morning. Patient was more organized and less bizarre today and her thought content/process. Patient was less emotionally labile during the interview. She spoke about speaking with her fianc over the phone and states that he will be coming tonight to visit her. She states that her mood has been improving and she feels calmer on the medications. At this time patient denies any suicidal or homical ideations, intent or plan. Patient denies any visual hallucinations or any auditory hallucinations. Patient denies any side effects from the medications and has been compliant with meds. Mental Status Exam: General Appearance: Patient appears to be older than stated age is alert, more directable and more appropriate. Patient appears to have improving hygiene and grooming. Behavior: Patient is seated without any agitated behavior. Attempts to cooperate. Speech: Patient's speech is fluent and nonpressured. Mood/Affect: Patient reports their mood is "good", affect is congruent and constricted. Suicidality/Homicidality: Patient denies having any homicidal ideation intent or plan. Denies any suicidal ideations intent or plan Perceptions: Patient denies any visual hallucinations and denies any auditory hallucinations. Though content/process: Improvement in thought process and content. Goal oriented. Memory and concentration: AOX3, improving attention span. Judgment and insight: poor, and probably mildly Assessment Psychosis unspecified Methamphetamine abuse Cocaine abuse Marijuana abuse Nicotine dependence Plan: -Patient continues to meet criteria for inpatient psychiatric admission for symptom stabilization and safety. Patient has signed treatment deferral papers on 07/04. Patient refused to sign for medication consent -Medications: Continue with Invega 3 mg daily at bedtime for psychosis/mood stabilization. We'll consider increasing tomorrow -When necessary Geodon for agitation/aggression. -NRT - nicotine patch -SW on board for discharge planning. Will speak with patient about options for substance abuse rehab versus community treatment for substance use. Patient's fianc will be visiting her [employer] and telegraphic typewriter operator will speak with him tomorrow to address any concerns and prepare more for discharge. Likely discharge in 2-3 days.
[2019-07-09] MEDS: SYMBICORT 160-4.5 MCG INHALER INHALATION SCH ×3 (20:21→22:22)
[2019-07-09] MEDS: PALIPERIDONE 3 MG TAB.ER.24 PO SCH (21:31)
[2019-07-10] MEDS: MAG HYDROX/AL HYDROX/SIMETH 30 ML CUP PO PRN ×2 (01:39→13:14)
[2019-07-10] MEDS: ACETAMINOPHEN TAB 325 MG TAB PO PRN ×2 (02:47→20:56)
[2019-07-10] MEDS ORDERED: LORazepam 1 MG TAB PO ONE (04:02)
[2019-07-10] MEDS ORDERED: IBUPROFEN 800 MG TAB PO PRN (04:02)
[2019-07-10] MEDS ORDERED: IBUPROFEN 800 MG TAB ONE ×2 (05:09→05:12)
[2019-07-10] MEDS: NICOTINE 21MG/24HR PATCH TRANSDERM SCH (09:26)
--- NOTE | 2019-07-10 11:13 | P.PN ---
Progress Note - Text Progress Note Date: 07/10/19 Interval History: Patient was seen wandering the hallways and speaking to other patients and agr eeable to speak to display card writer in the office. Patient appeared to have a brighter affect this morning and appeared to be more appropriate and cooperative during conversation. Patient was not responding to internal stimuli and was not bizarre in behaviors. Patient was more emotionally stable and directable during conversation. She spoke about her fibenito Jason coming to visit yesterday and spoke about them going back to work soon after discharge. She states that she has been "very sensitive" to recreational drugs and states that her mind has always been influenced by them. Patient appeared to want to do and a/AA meetings in the community upon discharge however is declining rehab at this time. She states that she is going to groups and trying to participate as best as she can. She states that she slept well throughout the night. She states that her mood has been improving and she feels calmer on the medications. At this time patient denies any suicidal or homical ideations, intent or plan. Patient denies any visual hallucinations or any auditory hallucinations. Patient denies any side effects from the medications and has been compliant with meds. Mental Status Exam: General Appearance: Patient appears to be older than stated age is alert, more directable and more appropriate. Patient appears to have improving hygiene and grooming. Improvement in eye contact. Behavior: Patient is seated without any agitated behavior. Cooperative. Speech: Patient's speech is fluent and nonpressured. Mood/Affect: Patient reports their mood is "better", affect is congruent Suicidality/Homicidality: Patient denies having any homicidal ideation intent or plan. Denies any suicidal ideations intent or plan Perceptions: Patient denies any visual hallucinations and denies any auditory hallucinations. Though content/process: Improvement in thought process and content. More Goal oriented and logical. Memory and concentration: AOX3, improved attention span. Judgment and insight: Improving mildly Assessment Psychosis unspecified likely secondary to polysubstance use. Methamphetamine abuse Cocaine abuse Marijuana abuse Nicotine dependence Plan: -Patient continues to meet criteria for inpatient psychiatric admission for symptom stabilization and safety. Patient has signed treatment deferral papers on 07/04. Patient refused to sign for medication consent -Medications: Continue with Invega 3 mg daily at bedtime for psychosis/mood stabilization. -When necessary Geodon for agitation/aggression. -NRT - nicotine patch -SW on board for discharge planning. Mobile Crane Operator spoke with patient about options for substance use treatment including rehab and community programs and patient at this time declined rehab and wanted to go to meetings upon discharge. Likely discharge tomorrow with [facility] follow-up.
[2019-07-10] MEDS: PALIPERIDONE 3 MG TAB.ER.24 PO SCH (20:52)
[2019-07-10] MEDS: SYMBICORT 160-4.5 MCG INHALER INHALATION SCH ×2 (20:53→20:54)
[2019-07-11 04:09] VITALS: BP 106/75; PULSE 87; RESP 16; TEMP 98.3
[2019-07-11] MEDS: NICOTINE 21MG/24HR PATCH TRANSDERM SCH (09:37)
--- NOTE | 2019-07-11 09:45 | P.DS ---
Providers Date of admission: 07/01/19 22:06 Expected date of discharge: 07/11/19 Attending physician: Woody Braun MD Consults: 07/01/19 23:18 Consult Physician Routine Consulting Provider: Broderick Crowe Consult Reason/Comments: H&P and medical Do you want consulting provider notified?: Yes Primary care physician: Pinky Brown - Discharge Diagnosis(es) (1) Psychosis Current Visit: Yes Status: Acute Priority: High (2) Methamphetamine abuse Current Visit: Yes Status: Acute Priority: Medium (3) Cocaine abuse Current Visit: Yes Status: Acute Priority: Medium (4) Cannabis use disorder, mild, abuse Current Visit: Yes Status: Acute Priority: Low (5) Nicotine dependence Current Visit: Yes Status: Acute Priority: Low Hospital Course: Admission HPI: Patient is a 39-year-old female , currently engaged living with her fianc and apartment and has 2 kids and is unemployed. Patient presented to the hospital yesterday via EMS and was found to be agitated at home and allegedly was using meth. Patient was also apparently having poor eating and drinking and self-care and not sleeping and has been off her medications for over month. Patient was petitioned by the Balance Bridge Assembler that was called initially to the house and boyfriend was apparently restraining patient as she was attempting to harm herself and acting bizarre and delusional. Patient was seen today by technical document writer and patient appeared to be bizarre, responding to internal stimuli and difficult to redirect. Patient was wandering the hallways and attempting to open doors. Patient was also carrying pictures and a letter from her fianc and was preoccupied with pictures during the interview and was noted to be emotionally labile, tearful as well. Patient denies any problems with her mood denies any depression and anxiety at this time. Patient was tangential, loose in associations and disorganized in terms of thought content. Patient states that she "freaked out at home" and states that she was "out of it". Patient also spoke about "moving a lot" and was also preoccupied with her apartment in [place]. Patient also told technical document writer that she can't "go on vacation anymore". Patient denied any drug use at this time however her UDS was positive for TCAs, methamphetamine, cocaine and marijuana. She did endorse smoking cigarettes daily. Patient denies any suicidal or homicidal ideations intent or plan. At this time patient denies any auditory or visual hallucinations. Hospital course: Upon admission to the unit patient was initially bizarre, labile and disorganized. Patient was initially not directable and did not sign for voluntary admission. A second certification was completed and filed a court and patient ended up signing a treatment deferral on 07/04. Patient eventually began engaging with treatment and taking medications. Patient was compliant with the medications and denied any side effects throughout hospital course. Patient was initially started on Abilify which was titrated up to a dose of 15 mg twice a day for psychosis however and needed to be discontinued due to ineffectiveness as patient was still bizarre and disorganized. Patient was then transitioned onto paliperidone 3 mg by mouth nightly for psychosis/mood stabilization and patient gradually improved and returned to her baseline. Patient spoke of her stressors and engaged in therapy both group and individual. Patient got along well with other patients on the unit and followed unit protocol. Patient was also seen by medical team for history and physical exam. Throughout the course of the hospitalization patient gradually improved with regards to psychosis/bizarre behavior, emotional lability, mood, sleep and became future oriented with improved insight and judgment. Patient spoke about the impact of recreational drug use on her mental health and declined rehab and wanted to go to NA meetings in the community. On the day of discharge patient denied any suicidal or homicidal ideations intent or plan denied any auditory or visual hallucinations. Patient endorsed wanting to live for her future and to get to her fianc. The patient denied any access to guns or weapons. Patient denied any paranoia and did not endorse any delusions. Patient does have a significant history of substance abuse and was counseled on abstaining from all substances including alcohol and marijuana. Patient was also counseled on the medications and need for regular compliance and was encouraged to follow- up with their outpatient appointment for mental health and also for primary care. Prior to discharge a family meeting will be arranged by social research assistant to answer any questions and ensure safety upon discharge. Group Contract Analyst also spoke with patient's fiance over the phone prior to discharge and addressed any questions and concerns to ensure patient safety upon discharge from the hospital. Patient's fiance was on board with continued plan for follow-up at [facility] and NA meetings in the community. Mental status exam: General Appearance: Patient appears to be stated age is thin, alert, pleasant, and cooperative. Patient is in no acute distress and has improved hygiene and grooming Behavior: Patient is calmly seated without any agitated behavior. Speech: Patient's speech is fluent and nonpressured. Mood/Affect: Patient reports their mood is "much better", affect is congruent and euthymic. Suicidality/Homicidality: Patient denies having any suicidal or homicidal ideation intent or plan. Perceptions: Patient denies any auditory or visual hallucinations. Though content/process: There is no evidence of any delusional thought content and thought process is linear and goal-directed. More future oriented. Memory and concentration: AOX3, grossly intact for the purposes of this session. Can spell "WORLD" backwards correctly. Judgment and insight: improved with guarded prognosis Impression: Psychosis unspecified, likely secondary to polysubstance abuse Methamphetamine abuse Cocaine abuse Cannabis abuse Nicotine dependence Plan: -Continue with discharge today as patient has improved and stabilized psychiatrically and is not currently an imminent threat to herself and/or others. -Continue medications: Continue with paliperidone 3 mg nightly for mood stabilization/psychosis. -Patient was counseled on the need for medication compliance and appropriate follow-up at mental health and also primary care for medical issues. Patient verbalized understanding and agreed. -Social work to arrange for and conduct family meeting to ensure safety upon discharge and answer any questions/concerns. Social work also to arrange for patients follow up appointments with [facility] for psychiatric care along with follow up with primary care provider. -Patient counseled on abstaining from recreational drugs and marijuana and alcohol. Was informed/educated on the adverse effects on their physical and mental health. Patient verbally agreed and understood. Patient was offered substance abuse treatment however declined at this time. Group Contract Analyst also spoke with patient's fiance over the phone prior to discharge and addressed any questions and concerns to ensure patient safety upon discharge from the hospital. Patient's fiance and patient were on board with continued plan for follow-up at [facility] and NA meetings in the community. transfer and line up worker to provide resources for NA meetings. -Patient was instructed to return to the hospital or seek immediate medical care if their psychiatric or medical symptoms do worsen or reoccur. Patient Condition at Discharge: Stable Plan - Discharge Summary New Discharge Prescriptions: New Nicotine 21Mg/24Hr Patch [Habitrol] 1 patch TRANSDERM DAILY 14 Days patch Paliperidone [Invega] 3 mg PO HS 28 Days tab.er.24 Budesonide-Formot 160-4.5 Mcg [Symbicort 160-4.5 Mcg Inhaler] 2 puff I NHALATION RT-BID puff Acetaminophen Tab [Tylenol] 650 mg PO Q4HR PRN tab PRN Reason: Pain/Discomfort Continue Ibuprofen [Motrin] 600 mg PO Q8HR PRN #30 tab PRN Reason: Pain Discontinued OXcarbazepine [Trileptal] 300 mg PO BID diphenhydrAMINE [Benadryl] 50 mg PO QID PRN #20 capsule PRN Reason: Itching Famotidine [Pepcid] 20 mg PO BID #14 tablet predniSONE [Deltasone] 20 mg PO BID #8 tab Discharge Medication List Ibuprofen [Motrin] 600 mg PO Q8HR PRN #30 tab 07/07/14 [Rx] Acetaminophen Tab [Tylenol] 650 mg PO Q4HR PRN tab 07/11/19 [Rx] Budesonide-Formot 160-4.5 Mcg [Symbicort 160-4.5 Mcg Inhaler] 2 puff INHALATION RT-BID puff 07/11/19 [Rx] Nicotine 21Mg/24Hr Patch [Habitrol] 1 patch TRANSDERM DAILY 14 Days patch 07/11/19 [Rx] Paliperidone [Invega] 3 mg PO HS 28 Days tab.er.24 07/11/19 [Rx] Follow up Appointment(s)/Referral(s): Stephanie Vance MD [Primary Care Provider] - 1-2 days Patient Instructions/Handouts: Brief Psychotic Disorder (DC) Activity/Diet/Wound Care/Special Instructions: Activity and diet as tolerated. Avoid the use of street drugs and alcohol. Take all medications as prescribed. When you are in need of refills on your medications please contact your medical provider and/or outpatient psychiatrist to have this done. Please go to scheduled outpatient appointment for aftercare treatment. If symptoms return or become worse, call the crisis line at and/or go to the nearest emergency room for evaluation. Patient to follow up with out patient primary care Doctor regarding Hepatitis C Reactive Lab. Discharge Disposition: HOME SELF-CARE
== END 2019-07-11 12:26 | disposition home or self-care (01) | DRG 885 ==
LOC: EC 18:06 → UNDOADMIN 22:06 → 3MHU 22:06
PROVIDERS: ADMIT Psychiatry & Neurology Psychiatry; ATTEND Psychiatry & Neurology Psychiatry
DX: F29 Unspecified psychosis not due to a substance or known physiological condition (principal); R45.851 Suicidal ideations; F15.10 Other stimulant abuse, uncomplicated; F17.210 Nicotine dependence, cigarettes, uncomplicated; Z71.51 Drug abuse counseling and surveillance of drug abuser; F14.10 Cocaine abuse, uncomplicated; F12.10 Cannabis abuse, uncomplicated; J44.9 Chronic obstructive pulmonary disease, unspecified; M79.7 Fibromyalgia; M85.80 Other specified disorders of bone density and structure, unspecified site; G89.29 Other chronic pain; M25.519 Pain in unspecified shoulder; M54.2 Cervicalgia; Z56.0 Unemployment, unspecified; R42 Dizziness and giddiness; G43.909 Migraine, unspecified, not intractable, without status migrainosus; Z79.899 Other long term (current) drug therapy
CPT/HCPCS: 36415; 80053; 80061; 80074; 80306; 80320; 80329; 81001; 82075; 83036; 83520; 84443; 85025; 96361; 96374; 99285

== ENCOUNTER 2020-04-26 11:34 | Emergency (ER) | payer MEDICAID, OTHER ==
[2020-04-26 11:55] VITALS: BP 116/85; PULSE 70; RESP 20; TEMP 98.3
[2020-04-26] MEDS ORDERED: ACET/COD 300 MG/30 MG STARTER PACK 6 TAB BTL PO STA (12:54)
[2020-04-26] MEDS ORDERED: predniSONE 50 MG TAB PO STA (12:54)
[2020-04-26] MEDS ORDERED: HYDROcodone/APAP 5-325MG 1 EACH TAB PO STA (12:54)
--- NOTE | 2020-04-26 12:58 | ED ---
ENT HPI - General Chief complaint: ENT Stated complaint: ear/jaw pain Time Seen by Provider: 04/26/20 12:25 Source: patient, RN notes reviewed Mode of arrival: ambulatory Limitations: no limitations - History of Present Illness Initial comments: 39-year-old female presents emergency from chief complaint right-sided jaw pain. Patient has had pain for over 5 weeks. Patient saw PCP who told her that she probably had an ear infection. Patient was placed on eardrops and oral antibiotics. Patient stated did not help symptoms have been worsening she sta alex it worsens at nighttime especially when she wakes up in the morning. No some clicking popping of her jaw she states she has no loose dentition no bad dentition bothering her. No fevers or chills. Headache neck pain or dizziness. - Related Data Previous Rx's Medication Instructions Recorded Ibuprofen [Motrin] 600 mg PO Q8HR PRN #30 tab 07/07/14 Acetaminophen Tab [Tylenol] 650 mg PO Q4HR PRN tab 07/11/19 Budesonide-Formot 160-4.5 Mcg 2 puff INHALATION RT-BID puff 07/11/19 [Symbicort 160-4.5 Mcg Inhaler] Nicotine 21Mg/24Hr Patch [Habitrol] 1 patch TRANSDERM DAILY 14 Days 07/11/19 patch Paliperidone [Invega] 3 mg PO HS 28 Days tab.er.24 07/11/19 predniSONE 50 mg PO DAILY #4 tab 04/26/20 Allergies Allergy/AdvReac Type Severity Reaction Status Date / Time amoxicillin Allergy Anaphylaxis Verified 04/26/20 11:55 Penicillins Allergy Anaphylaxis Verified 04/26/20 11:55 Review of Systems ROS Statement: Those systems with pertinent positive or pertinent negative responses have been documented in the HPI. ROS Other: All systems not noted in ROS Statement are negative. Past Medical History Past Medical History: Fibromyalgia Additional Past Medical History / Comment(s): chiari malformation, osteopenia, migraines, vertigo,chronic neck/shoulder pain History of Any Multi-Drug Resistant Organisms: None Reported Additional Past Surgical History / Comment(s): D&C Past Psychological History: Anxiety, Bipolar, Depression Past Alcohol Use History: Occasional Past Drug Use History: Marijuana General Exam Limitations: no limitations General appearance: alert, in no apparent distress Head exam: Present: atraumatic, normocephalic, normal inspection Eye exam: Present: normal appearance, PERRL, EOMI. Absent: scleral icterus, conjunctival injection, periorbital swelling ENT exam: Present: normal oropharynx, mucous membranes moist, TM's normal bilaterally, normal external ear exam. Absent: normal exam (No loose dentition, no oral lesions or any signs of infection, patient does have some popping of her right TMJ region, tenderness with palpation) Neck exam: Present: normal inspection, full ROM. Absent: tenderness, meningismus, lymphadenopathy Respiratory exam: Present: normal lung sounds bilaterally. Absent: respiratory distress, wheezes, rales, rhonchi, stridor Cardiovascular Exam: Present: regular rate, normal rhythm, normal heart sounds. Absent: systolic murmur, diastolic murmur, rubs, gallop, clicks Course Vital Signs 04/26/20 11:52 Temperature 98.3 F Pulse Rate 70 Respiratory 20 Rate Blood Pressure 116/85 O2 Sat by Pulse 100 Oximetry Medical Decision Making - Medical Decision Making Patient has evidence of TMJ syndrome. Patient will be follow-up with dentist, oral surgery. Patient was given pain management, anti-inflammatories. Disposition Clinical Impression: TMJ (temporomandibular joint syndrome) Disposition: HOME SELF-CARE Condition: Stable Instructions (If sedation given, give patient instructions): Temporomandibular Disorder (ED) Additional Instructions: Please return to the Emergency Department if symptoms worsen or any other concerns. Prescriptions: predniSONE 50 mg PO DAILY #4 tab Is patient prescribed a controlled substance at d/c from ED?: No Referrals: Stephanie Vance MD [Primary Care Provider] - 1-2 days Champ Potter DDS [STAFF PHYSICIAN] - 1-2 days Time of Disposition: 12:58
== END 2020-04-26 13:42 | disposition home or self-care (01) ==
LOC: EC 11:34
DX: M26.609 Unspecified temporomandibular joint disorder, unspecified side (principal); Z88.0 Allergy status to penicillin
CPT/HCPCS: 99283; J7512

== ENCOUNTER → 2020-05-28 | Outpatient (CLI) | payer OTHER ==
--- NOTE | 2020-05-28 23:35 | MR ---
EXAMINATION TYPE: MR tmj wo con DATE OF EXAM: 05/28/2020 COMPARISON: None HISTORY: Right-sided pain Multiplanar multiecho imaging of the temporomandibular joints was performed in the open and close radha th position. Temporomandibular joint spaces are normal. The menisci appear normal position. The open-mouth view sh ows normal movement of the mandibular condyles bilaterally. The menisci appear normal position on the open-mouth view. There is no subluxation. The mandibular condyles have normal signal pattern without evidence of edema. I see no focal bone destruction. IMPRESSION: Normal temporomandibular joint exam. No evidence of meniscal tear.
== END | disposition home or self-care (01) ==
LOC: RADMRIMAIN 20:36
PROVIDERS: ATTEND Internal Medicine
DX: M26.601 Right temporomandibular joint disorder, unspecified (principal)
CPT/HCPCS: 70336

== ENCOUNTER → 2020-07-23 | Outpatient (CLI) | payer OTHER ==
[2020-07-23 23:18] LABS: Basophils # (A) 0.06 X 10*3/uL (0.00-0.10); Basophils % (A) 0.6 %; Eosinophils # (A) 0.14 X 10*3/uL (0.04-0.35); Eosinophils % (A) 1.4 %; HCT 43.8 % (37.2-46.3); Lymphocytes # (A) 1.55 X 10*3/uL (0.90-5.00); Lymphocytes % (A) 15.8 %; MCH 31.6 pg (27.0-32.0); MCV 98.9 fL (80.0-97.0); Mean Platelet Volume 12.8 fL (9.5-12.2); Monocytes # (A) 0.27 X 10*3/uL (0.20-1.00); Monocytes % (A) 2.7 %; Neutrophils # (A) 7.79 X 10*3/uL (1.80-7.70); Neutrophils % (A) 79.3 %; Platelet Count 228 X 10*3/uL (140-440); RBC 4.43 X 10*6/uL (4.10-5.20); RDW 12.4 % (11.5-14.5); WBC 9.83 X 10*3/uL (4.50-10.00)
[2020-07-24 03:27] LABS: African American GFR (CKD) 91.4 (60.0-200.0); Albumin 4.5 g/dL (3.80-4.90); Albumin/Globulin Ratio 2.65 (1.60-3.17); Anion Gap 12.7 mmol/L (4.00-12.00); BUN/Creat Ratio 17.78 Ratio (12.00-20.00); Calcium 9.4 mg/dL (8.7-10.3); Carbon Dioxide 21.3 mmol/L (21.6-31.8); Globulin 1.7 g/dL (1.6-3.3); Non-African American GFR(CKD) 78.9 (60.0-200.0); Total Bilirubin 0.2 mg/dL (0.3-1.2); Total Protein 6.2 g/dL (6.2-8.2)
[2020-07-24 04:40] LABS: Hepatitis A Antibody IgM Non-Reactive (Non-Reactive); Hepatitis B Core IgM Non-Reactive (Non-Reactive); Hepatitis B Surface Antigen Non-Reactive (Non-Reactive); Hepatitis C IgG Antibody Reactive (Non-Reactive)
== END | disposition home or self-care (01) ==
LOC: LABWHC1 14:44
PROVIDERS: ATTEND Internal Medicine
DX: Z20.5 Contact with and (suspected) exposure to viral hepatitis (principal)
CPT/HCPCS: 36415; 80053; 80074; 85025

== ENCOUNTER → 2020-08-10 | Outpatient (CLI) | payer OTHER | END | disposition home or self-care (01) | LOC: LABWHC1 13:56 | PROVIDERS: ATTEND Nurse Practitioner | DX: Z09 Encounter for follow-up examination after completed treatment for conditions other than malignant neoplasm (principal); Z86.19 Personal history of other infectious and parasitic diseases | CPT/HCPCS: 36415; 87522 ==

== ENCOUNTER → 2020-09-02 | Outpatient (CLI) | payer OTHER ==
--- NOTE | 2020-09-02 11:53 | US ---
EXAMINATION TYPE: US liver DATE OF EXAM: 09/02/2020 COMPARISON: CT February 27, 2017 CLINICAL HISTORY: B18.2 Chronic viral hepatitis C. hepatitis, diarrhea EXAM MEASUREMENTS: Liver Length: 14.3 cm Gallbladder Wall: 0.1 cm CBD: 0.4 cm Right Kidney: 10.4 x 3.7 x 4.4 cm Pancreas: visualized portions appear wnl Liver: wnl Gallbladder: no evidence of stones Evidence for sonographic Rodriguez's sign: no CBD: wnl Right Kidney: no evidence of hydronephrosis IMPRESSION: No suspicious intrahepatic mass or intrahepatic ductal dilatation.
== END | disposition home or self-care (01) ==
LOC: RADUSWWP 10:56
PROVIDERS: ATTEND Internal Medicine Gastroenterology
DX: B18.2 Chronic viral hepatitis C (principal)
CPT/HCPCS: 76705

== ENCOUNTER 2020-12-01 18:27 | Emergency (ER) | payer OTHER ==
[2020-12-01 18:35] VITALS: RESP 18; TEMP 98.3
[2020-12-01] MEDS ORDERED: SODIUM CHLORIDE 0.9% 1,000 ML IV STA (19:14)
--- NOTE | 2020-12-01 19:24 | ED ---
General Adult HPI - General Chief complaint: Nausea/Vomiting/Diarrhea Stated complaint: Abdominal Pain Source: patient, RN notes reviewed, old records reviewed Mode of arrival: ambulatory Limitations: no limitations - History of Present Illness Initial comments: 40-year-old white female, alert and oriented 4, presents to the emergency room with complaints of fatigue and occasional right upper abdominal pain. Patient states that she's lost her appetite as well. States that she was told back in August that she has hepatitis C and was supposed to have outpatient labs done and have medications mailed to her however she did not get the labs done. Patient states that she's having increased stress with her relationship with her boyfriend who she left today. Patient states she also has a history of irritable bowel syndrome with some uncontrolled diarrhea at times. She states no bowel movement today. She denies any vomiting. In the past she has seen Dr. Beverly and Dr. Vance however she does want a new primary care doctor. She states that the pain is gone at this time. She has no nausea. She is just concerned about the hepatitis C and not getting treatment yet. -: month(s) (3) Location: abdomen Radiation: non-radiation Severity scale (1-10): 0 Consistency: intermittent, now resolved Improves with: none Worsens with: eating Associated Symptoms: loss of appetite, other (Fatigue) Treatments Prior to Arrival: none - Related Data Home Medications Medication Instructions Recorded Confirmed Acetaminophen [Tylenol] 1,000 mg PO Q4-6H PRN 04/26/20 12/01/20 Ibuprofen [Motrin Ib] 800 mg PO Q8H PRN 04/26/20 12/01/20 Allergies Allergy/AdvReac Type Severity Reaction Status Date / Time amoxicillin Allergy Anaphylaxis Verified 12/01/20 19:52 Penicillins Allergy Anaphylaxis Verified 12/01/20 19:52 Review of Systems ROS Statement: Those systems with pertinent positive or pertinent negative responses have been documented in the HPI. ROS Other: All systems not noted in ROS Statement are negative. Past Medical History Past Medical History: Fibromyalgia Additional Past Medical History / Comment(s): chiari malformation, osteopenia, migraines, vertigo,chronic neck/shoulder pain History of Any Multi-Drug Resistant Organisms: None Reported Additional Past Surgical History / Comment(s): D&C Past Psychological History: Anxiety, Bipolar, Depression, PTSD Smoking Status: Current every day smoker Past Alcohol Use History: Occasional Past Drug Use History: Marijuana, Methamphetamine General Exam Limitations: no limitations General appearance: alert, in no apparent distress Head exam: Present: atraumatic, normocephalic, normal inspection Eye exam: Present: normal appearance, PERRL, EOMI. Absent: scleral icterus, conjunctival injection, periorbital swelling ENT exam: Present: normal exam, normal oropharynx, mucous membranes moist Neck exam: Present: normal inspection, full ROM. Absent: tenderness, meningismus, lymphadenopathy, thyromegaly Respiratory exam: Present: normal lung sounds bilaterally. Absent: respiratory distress, wheezes, rales, rhonchi, stridor, chest wall tenderness, accessory muscle use, decreased breath sounds, prolonged expiratory Cardiovascular Exam: Present: normal rhythm, tachycardia, normal heart sounds. Absent: systolic murmur, diastolic murmur, rubs, gallop, clicks GI/Abdominal exam: Present: soft, normal bowel sounds. Absent: distended, tenderness, guarding, rebound, rigid, organomegaly, mass Extremities exam: Present: full ROM, normal capillary refill. Absent: tendernes s, pedal edema, joint swelling, calf tenderness Back exam: Present: normal inspection, full ROM. Absent: tenderness, CVA tenderness (R), CVA tenderness (L), muscle spasm, paraspinal tenderness, vertebral tenderness Neurological exam: Present: alert, oriented X3, CN II-XII intact Psychiatric exam: Present: normal affect, normal mood Skin exam: Present: warm, dry, intact, normal color. Absent: rash, cyanosis, diaphoretic, erythema, petechiae, pallor, mottled Course Vital Signs 12/01/20 18:27 Temperature 98.3 F Pulse Rate 110 H Respiratory 18 Rate Blood Pressure 160/93 O2 Sat by Pulse 99 Oximetry Medical Decision Making - Medical Decision Making Patient remains pain-free at this time ambulating around in the room. Vital signs are stable. CT shows no evidence of renal stones or obstruction normal appendix. Liver spleen stomach pancreas and gallbladder all appear intact. Bile ducts are not dilated. Total bili is 1.1, states she is 36 and ALT 18. Patient has been diagnosed with hepatitis C and has been seen by Dr. Beverly she will be referred to follow up with Dr. Beverly for treatment. Patient was given a list of shelters and community resources for her depression. She denies suicidal or homicidal ideations at this time. Vital signs are stable and she is agreeable to being discharged and following up as directed. Case discussed with Dr. Bradley was also agreeable to this plan of care. - Lab Data Result diagrams: 12/01/20 19:32 12/01/20 19:32 Lab Results 12/01/20 12/01/20 12/01/20 Range/Units 19:30 19:32 19:32 WBC 15.4 H (3.8-10.6) k/uL RBC 4.94 (3.80-5.40) m/uL Hgb 15.7 (11.4-16.0) gm/dL Hct 47.0 H (34.0-46.0) % MCV 95.2 (80.0-100.0) fL MCH 31.8 (25.0-35.0) pg MCHC 33.4 (31.0-37.0) g/dL RDW 13.0 (11.5-15.5) % Plt Count 265 (150-450) k/uL MPV 8.6 Neutrophils % 80 % Lymphocytes % 12 % Monocytes % 4 % Eosinophils % 2 % Basophils % 0 % Neutrophils # 12.4 H (1.3-7.7) k/uL Lymphocytes # 1.9 (1.0-4.8) k/uL Monocytes # 0.6 (0-1.0) k/uL Eosinophils # 0.3 (0-0.7) k/uL Basophils # 0.0 (0-0.2) k/uL PT 9.6 (9.0-12.0) sec INR 0.9 (<1.2) APTT 22.1 (22.0-30.0) sec Sodium (137-145) mmol/L Potassium (3.5-5.1) mmol/L Chloride (98-107) mmol/L Carbon Dioxide (22-30) mmol/L Anion Gap mmol/L BUN (7-17) mg/dL Creatinine (0.52-1.04) mg/dL Est GFR (CKD-EPI)AfAm (>60 ml/min/1.73 sqM) Est GFR (CKD-EPI)NonAf (>60 ml/min/1.73 sqM) Glucose (74-99) mg/dL POC Glucose (mg/dL) 110 H (75-99) mg/dL POC Glu House Mover ID Quit[place] Ng Plasma Lactic Acid Keenan (0.7-2.0) mmol/L Calcium (8.4-10.2) mg/dL Total Bilirubin (0.2-1.3) mg/dL Conjugated Bilirubin (0.0-0.3) mg/dL Unconjugated Bilirubin (0.0-1.1) mg/dL Delta Bilirubin (0.0-0.2) mg/dL AST (14-36) U/L ALT (4-34) U/L Alkaline Phosphatase (38-126) U/L Total Protein (6.3-8.2) g/dL Albumin (3.5-5.0) g/dL Amylase (30-110) U/L Lipase (23-300) U/L Urine Color Urine Appearance (Clear) Urine pH (5.0-8.0) Ur Specific Kent (1.001-1.035) Urine Protein (Negative) Urine Glucose (UA) (Negative) Urine Ketones (Negative) Urine Blood (Negative) Urine Nitrite (Negative) Urine Bilirubin (Negative) Urine Urobilinogen (<2.0) mg/dL Ur Leukocyte Esterase (Negative) Urine HCG, Qual (Not Detectd) 12/01/20 12/01/20 12/01/20 Range/Units 19:32 19:32 19:32 WBC (3.8-10.6) k/uL RBC (3.80-5.40) m/uL Hgb (11.4-16.0) gm/dL Hct (34.0-46.0) % MCV (80.0-100.0) fL MCH (25.0-35.0) pg MCHC (31.0-37.0) g/dL RDW (11.5-15.5) % Plt Count (150-450) k/uL MPV Neutrophils % % Lymphocytes % % Monocytes % % Eosinophils % % Basophils % % Neutrophils # (1.3-7.7) k/uL Lymphocytes # (1.0-4.8) k/uL Monocytes # (0-1.0) k/uL Eosinophils # (0-0.7) k/uL Basophils # (0-0.2) k/uL PT (9.0-12.0) sec INR (<1.2) APTT (22.0-30.0) sec Sodium 139 (137-145) mmol/L Potassium 3.6 (3.5-5.1) mmol/L Chloride 106 (98-107) mmol/L Carbon Dioxide 23 (22-30) mmol/L Anion Gap 10 mmol/L BUN 14 (7-17) mg/dL Creatinine 0.77 (0.52-1.04) mg/dL Est GFR (CKD-EPI)AfAm >90 (>60 ml/min/1.73 sqM) Est GFR (CKD-EPI)NonAf >90 (>60 ml/min/1.73 sqM) Glucose 98 (74-99) mg/dL POC Glucose (mg/dL) (75-99) mg/dL POC Glu House Mover ID Plasma Lactic Acid Keenan (0.7-2.0) mmol/L Calcium 10.4 H (8.4-10.2) mg/dL Total Bilirubin 1.1 (0.2-1.3) mg/dL Conjugated Bilirubin 0.0 (0.0-0.3) mg/dL Unconjugated Bilirubin 1.0 (0.0-1.1) mg/dL Delta Bilirubin 0.1 (0.0-0.2) mg/dL AST 38 H (14-36) U/L ALT 18 (4-34) U/L Alkaline Phosphatase 96 (38-126) U/L Total Protein 7.7 (6.3-8.2) g/dL Albumin 5.2 H (3.5-5.0) g/dL Amylase 99 (30-110) U/L Lipase 102 (23-300) U/L Urine Color Light Yellow Urine Appearance Clear (Clear) Urine pH 6.0 (5.0-8.0) Ur Specific Kent 1.005 (1.001-1.035) Urine Protein Negative (Negative) Urine Glucose (UA) Negative (Negative) Urine Ketones Negative (Negative) Urine Blood Negative (Negative) Urine Nitrite Negative (Negative) Urine Bilirubin Negative (Negative) Urine Urobilinogen <2.0 (<2.0) mg/dL Ur Leukocyte Esterase Negative (Negative) Urine HCG, Qual Not Detected (Not Detectd) 12/01/20 Range/Units 19:32 WBC (3.8-10.6) k/uL RBC (3.80-5.40) m/uL Hgb (11.4-16.0) gm/dL Hct (34.0-46.0) % MCV (80.0-100.0) fL MCH (25.0-35.0) pg MCHC (31.0-37.0) g/dL RDW (11.5-15.5) % Plt Count (150-450) k/uL MPV Neutrophils % % Lymphocytes % % Monocytes % % Eosinophils % % Basophils % % Neutrophils # (1.3-7.7) k/uL Lymphocytes # (1.0-4.8) k/uL Monocytes # (0-1.0) k/uL Eosinophils # (0-0.7) k/uL Basophils # (0-0.2) k/uL PT (9.0-12.0) sec INR (<1.2) APTT (22.0-30.0) sec Sodium (137-145) mmol/L Potassium (3.5-5.1) mmol/L Chloride (98-107) mmol/L Carbon Dioxide (22-30) mmol/L Anion Gap mmol/L BUN (7-17) mg/dL Creatinine (0.52-1.04) mg/dL Est GFR (CKD-EPI)AfAm (>60 ml/min/1.73 sqM) Est GFR (CKD-EPI)NonAf (>60 ml/min/1.73 sqM) Glucose (74-99) mg/dL POC Glucose (mg/dL) (75-99) mg/dL POC Glu House Mover ID Plasma Lactic Acid Keenan 1.7 (0.7-2.0) mmol/L Calcium (8.4-10.2) mg/dL Total Bilirubin (0.2-1.3) mg/dL Conjugated Bilirubin (0.0-0.3) mg/dL Unconjugated Bilirubin (0.0-1.1) mg/dL Delta Bilirubin (0.0-0.2) mg/dL AST (14-36) U/L ALT (4-34) U/L Alkaline Phosphatase (38-126) U/L Total Protein (6.3-8.2) g/dL Albumin (3.5-5.0) g/dL Amylase (30-110) U/L Lipase (23-300) U/L Urine Color Urine Appearance (Clear) Urine pH (5.0-8.0) Ur Specific Kent (1.001-1.035) Urine Protein (Negative) Urine Glucose (UA) (Negative) Urine Ketones (Negative) Urine Blood (Negative) Urine Nitrite (Negative) Urine Bilirubin (Negative) Urine Urobilinogen (<2.0) mg/dL Ur Leukocyte Esterase (Negative) Urine HCG, Qual (Not Detectd) Disposition Clinical Impression: Abdominal pain Disposition: HOME SELF-CARE Condition: Good Instructions (If sedation given, give patient instructions): Abdominal Pain (ED) Additional Instructions: Follow-up with Dr. Beverly for continuation of care of your Hepatitis. Return to the emergency room with worsening symptoms. Contact the community resources as provided as needed. Is patient prescribed a controlled substance at d/c from ED?: No Referrals: None,Stated [Primary Care Provider] - 1-2 days Mack Newman MD [STAFF PHYSICIAN] - 1-2 days Time of Disposition: 20:43
[2020-12-01 19:41] LABS: Glucose,Whole Blood 110 mg/dL (75-99)
[2020-12-01 19:44] LABS: Basophils % (A) 0 %; Eosinophils # (A) 0.3 k/uL (0-0.7); Eosinophils % (A) 2 %; HGB 15.7 gm/dL (11.4-16.0); Lymphocytes # (A) 1.9 k/uL (1.0-4.8); Lymphocytes % (A) 12 %; MCH 31.8 pg (25.0-35.0); MCHC 33.4 g/dL (31.0-37.0); MCV 95.2 fL (80.0-100.0); Mean Platelet Volume 8.6; Monocytes # (A) 0.6 k/uL (0-1.0); Monocytes % (A) 4 %; Neutrophils # (A) 12.4 k/uL (1.3-7.7); Neutrophils % (A) 80 %; Platelet Count 265 k/uL (150-450); RBC 4.94 m/uL (3.80-5.40); WBC 15.4 k/uL (3.8-10.6)
[2020-12-01 19:46] LABS: Appearance,Urine Clear (Clear); Bilirubin,Urine Negative (Negative); Blood,Urine Negative (Negative); Color,Urine Light Yellow; Glucose,Urine (UA) Negative (Negative); Ketones,Urine Negative (Negative); Leukocyte Esterase,Urine Negative (Negative); Nitrite,Urine Negative (Negative); Protein,Urine Negative (Negative); Specific Gravity,Urine 1.005 (1.001-1.035); Urobilinogen,Urine <2.0 mg/dL (<2.0)
[2020-12-01 19:52] LABS: INR 0.9 (<1.2); Partial Thromboplastin Time 22.1 sec (22.0-30.0); Prothrombin Time 9.6 sec (9.0-12.0)
[2020-12-01 19:53] LABS: ALT 18 U/L (4-34); AST 38 U/L (14-36); African American GFR (CKD) >90 (>60 ml/min/1.73 sqM); Albumin 5.2 g/dL (3.5-5.0); Alkaline Phosphatase 96 U/L (38-126); Amylase 99 U/L (30-110); Anion Gap 10 mmol/L; Bilirubin, Delta 0.1 mg/dL (0.0-0.2); Blood Urea Nitrogen 14 mg/dL (7-17); Calcium 10.4 mg/dL (8.4-10.2); Carbon Dioxide 23 mmol/L (22-30); Chloride 106 mmol/L (98-107); Glucose 98 mg/dL (74-99); Lipase 102 U/L (23-300); Non-African American GFR(CKD) >90 (>60 ml/min/1.73 sqM); Potassium 3.6 mmol/L (3.5-5.1); Sodium 139 mmol/L (137-145); Total Bilirubin 1.1 mg/dL (0.2-1.3); Total Protein 7.7 g/dL (6.3-8.2)
--- NOTE | 2020-12-01 20:09 | CT ---
EXAMINATION TYPE: CT abdomen pelvis wo con DATE OF EXAM: 12/01/2020 COMPARISON: 02/27/2017 HISTORY: Abdominal pain. Patient poor historian. CT DLP: 317.6 mGycm Automated exposure control for dose reduction was used. Images obtained from the diaphragm to the floor the pelvis without contrast. Lung bases are clear. There is no pleural effusion. Heart size is normal. There is no pericardial eff usion. Liver spleen stomach pancreas gallbladder appear intact. The bile ducts are not dilated. There is no adrenal mass. Kidneys show normal size and contour. There is no hydronephrosis. Ureters a re not dilated. There is no retroperitoneal adenopathy. Appendix is posterior and lateral and appears normal. Bladder distends smoothly. There is no inguinal hernia. There is no free fluid in the pelvis . Uterus is anteverted. I see no evidence of a pelvic mass. There is no mesenteric edema. There is no ascites or free air. There is no bowel obstruction. The lum bar vertebra have normal alignment. Disc spaces are fairly normal. There is no compression fracture. The bony pelvis is intact. The hip joints appear intact. There is no hip dysplasia. IMPRESSION: No evidence of renal stone or obstruction. Normal appendix. No adverse change compared to old exam.
[2020-12-01 20:44] VITALS: BP 151/93; PULSE 102
== END 2020-12-01 21:10 | disposition home or self-care (01) ==
LOC: EC 18:27
DX: R10.11 Right upper quadrant pain (principal); R11.2 Nausea with vomiting, unspecified; R19.7 Diarrhea, unspecified; R53.83 Other fatigue; R63.0 Anorexia; F17.200 Nicotine dependence, unspecified, uncomplicated; Z88.0 Allergy status to penicillin
CPT/HCPCS: 36415; 74176; 80053; 81003; 81025; 82150; 82248; 83605; 83690; 85025; 85610; 85730; 96360; 99284

== ENCOUNTER → 2021-12-15 | Outpatient (CLI) | payer OTHER ==
[2021-12-15 18:17] LABS: Basophils # (A) 0.06 X 10*3/uL (0.00-0.10); Basophils % (A) 0.5 %; Eosinophils # (A) 0.09 X 10*3/uL (0.04-0.35); Eosinophils % (A) 0.8 %; HCT 47.6 % (37.2-46.3); HGB 14.9 g/dL (12.0-15.0); Immature Grans, Automated 0.4 %; Lymphocytes # (A) 1.61 X 10*3/uL (0.90-5.00); Lymphocytes % (A) 13.8 %; MCH 31.2 pg (27.0-32.0); MCHC 31.3 g/dL (32.0-37.0); MCV 99.8 fL (80.0-97.0); Mean Platelet Volume 11.9 fL (9.5-12.2); Monocytes # (A) 0.33 X 10*3/uL (0.20-1.00); Monocytes % (A) 2.8 %; NRBC Per 100 WBC 0 /100 WBCS (0.0-0.0); Neutrophils # (A) 9.53 X 10*3/uL (1.80-7.70); Neutrophils % (A) 81.7 %; Platelet Count 264 X 10*3/uL (140-440); RBC 4.77 X 10*6/uL (4.10-5.20); RDW 13.1 % (11.5-14.5); WBC 11.67 X 10*3/uL (4.50-10.00)
[2021-12-15 19:05] LABS: African American GFR (CKD) 104.7 (60.0-200.0); Albumin 4.7 g/dL (3.8-4.9); Albumin/Globulin Ratio 2.35 (1.60-3.17); Anion Gap 10.9 mmol/L (10.00-18.00); BUN/Creat Ratio 16.5 Ratio (12.00-20.00); Blood Urea Nitrogen 13.2 mg/dL (9.0-27.0); Calcium 9.8 mg/dL (8.7-10.3); Carbon Dioxide 26.1 mmol/L (20.0-27.5); Non-African American GFR(CKD) 90.3 (60.0-200.0); Potassium 4.3 mmol/L (3.5-5.5); Total Bilirubin 0.4 mg/dL (0.30-1.20); Total Protein 6.7 g/dL (6.2-8.2)
[2021-12-15 19:14] LABS: Hepatitis B Surface Antigen Nonreactive (Nonreactive)
[2021-12-15 20:12] LABS: INR 0.86 (0.90-1.11); Prothrombin Time 9.8 sec (9.9-11.9)
[2021-12-16 02:42] LABS: HIV 2 AB Non-Reactive (Non-Reactive); HIV AB P24 Non-Reactive (Non-Reactive); HIV P24 AG Non-Reactive (Non-Reactive)
== END | disposition home or self-care (01) ==
LOC: LABWHC1 12:35
PROVIDERS: ATTEND Internal Medicine Gastroenterology
DX: B18.2 Chronic viral hepatitis C (principal)
CPT/HCPCS: 36415; 80053; 82105; 85025; 85610; 87340; 87390; 87522

== ENCOUNTER → 2022-02-28 | Outpatient (CLI) | payer OTHER ==
--- NOTE | 2022-03-01 08:44 | MR ---
EXAMINATION TYPE: MR brain/cspine wo DATE OF EXAM: 02/28/2022 4:51 PM COMPARISON: 11/24/2014 cervical spine radiographs, MRI cervical spine 10/30/2013. CLINICAL INDICATION:Female, 41 years old with history of M54.12 CERVICAL RADICULOPATHY; TECHNIQUE: Multi planar, multi sequence imaging was performed through the brain including: T1, T2, Inversion rec overy, Diffusion weighted imaging, and gradient echo imaging. No gadolinium was given. Multi planar, multi sequence imaging was performed utilizing: T1-weighted, T2-weighted, and turbo inv ersion recovery imaging of the cervical spine. IV Contrast: None FINDINGS: The lebron-white junctions, ventricular system, and cisterns appear unremarkable. Single foci of high T2 signal intensity are seen within the deep white matter in the left frontal lobe. Midline structur es show no abnormality. Diffusion-weighted imaging shows no evidence of restricted diffusion. The bone marrow signal is within normal limits. The paranasal sinuses and globes are unremarkable. Alignment: The cervical vertebral bodies have preserved heights. Alignment is within normal limits gi leonora patient positioning. Bones: Bone signal is within normal limits. Multilevel degenerative disc disease is noted and most p ronounced at the C6-C7 vertebral levels. Cord: The spinal cord is unremarkable with regards to their signal intensity and morphology. Discs: Intervertebral disc signal is maintained. C2-C3: No significant disc pathology. The spinal canal is patent. No neural foraminal stenosis. C3-C4: No significant disc pathology. The spinal canal is patent. No neural foraminal stenosis. C4-C5: No significant disc pathology. The spinal canal is patent. No neural foraminal stenosis. C5-C6: No significant disc pathology. The spinal canal is patent. No neural foraminal stenosis. C6-C7: A disc osteophyte complex is present which minimally narrows the ventral subarachnoid space. Bilateral facet and uncovertebral joint arthropathy are present with mild bilateral neural foraminal stenosis. C7-T1: No significant disc pathology. The spinal canal is patent. No neural foraminal stenosis. IMPRESSION: 1. No evidence for disc herniation or significant spinal canal stenosis. 2. Minimal disc degeneration with associated osteoarthritic changes. 3. No evidence of intracranial mass or acute/subacute infarct. 4. Single focus of nonspecific white matter changes in the left frontal lobe.
== END | disposition home or self-care (01) ==
LOC: RADMRIMAIN 15:58
PROVIDERS: ATTEND Psychiatry & Neurology Neurology
DX: M54.12 Radiculopathy, cervical region (principal)
CPT/HCPCS: 70551; 72141

== ENCOUNTER → 2022-03-28 | Outpatient (CLI) | payer OTHER ==
[2022-03-28 14:21] LABS: Basophils # (A) 0.06 X 10*3/uL (0.00-0.10); Basophils % (A) 0.6 %; Eosinophils # (A) 0.13 X 10*3/uL (0.04-0.35); Eosinophils % (A) 1.3 %; HGB 14.6 g/dL (12.0-15.0); Immature Grans, Automated 0.4 %; Lymphocytes # (A) 1.57 X 10*3/uL (0.90-5.00); Lymphocytes % (A) 16.3 %; MCH 31.7 pg (27.0-32.0); MCHC 31.1 g/dL (32.0-37.0); MCV 102.2 fL (80.0-97.0); Mean Platelet Volume 10.8 fL (9.5-12.2); Monocytes # (A) 0.39 X 10*3/uL (0.20-1.00); NRBC Per 100 WBC 0 /100 WBCS (0.0-0.0); Neutrophils # (A) 7.44 X 10*3/uL (1.80-7.70); Neutrophils % (A) 77.4 %; Platelet Count 294 X 10*3/uL (140-440); RDW 13.2 % (11.5-14.5); WBC 9.63 X 10*3/uL (4.50-10.00)
[2022-03-28 14:30] LABS: ALT 17 U/L (8-44); AST 14 U/L (13-35); African American GFR (CKD) 109.6 (60.0-200.0); Albumin 4.3 g/dL (3.8-4.9); Albumin/Globulin Ratio 1.86 (1.60-3.17); Alkaline Phosphatase 84 U/L (41-126); BUN/Creat Ratio 28.44 Ratio (12.00-20.00); Blood Urea Nitrogen 21.9 mg/dL (9.0-27.0); Calcium 9.4 mg/dL (8.7-10.3); Carbon Dioxide 23.4 mmol/L (20.0-27.5); Chloride 107 mmol/L (96-109); Globulin 2.3 g/dL (1.6-3.3); Glucose 94 mg/dL (70-110); Non-African American GFR(CKD) 94.6 (60.0-200.0); Potassium 5.2 mmol/L (3.5-5.5); Sodium 140 mmol/L (135-145); Total Bilirubin <0.15 mg/dL (0.30-1.20); Total Protein 6.6 g/dL (6.2-8.2)
== END | disposition home or self-care (01) ==
LOC: LABWHC1 09:04
PROVIDERS: ATTEND Internal Medicine Gastroenterology
DX: B18.2 Chronic viral hepatitis C (principal)
CPT/HCPCS: 36415; 80053; 85025; 87522

== ENCOUNTER → 2023-02-23 | Outpatient (CLI) | payer OTHER ==
[2023-02-23 16:29] LABS: Basophils # (A) 0.05 X 10*3/uL (0.00-0.10); Basophils % (A) 0.5 %; Eosinophils # (A) 0.09 X 10*3/uL (0.04-0.35); HCT 49.8 % (37.2-46.3); Lymphocytes # (A) 1.89 X 10*3/uL (0.90-5.00); Lymphocytes % (A) 20.5 %; MCH 31.9 pg (27.0-32.0); MCHC 32.1 d/dL (32.0-37.0); MCV 99.4 FL (80.0-97.0); Mean Platelet Volume 11.8 FL (9.5-12.2); Monocytes # (A) 0.32 X 10*3/uL (0.20-1.00); Monocytes % (A) 3.5 %; NRBC Per 100 WBC 0 X 10*3/uL (0.00-0.01); Neutrophils # (A) 6.85 X 10*3/uL (1.80-7.70); Neutrophils % (A) 74.3 %; Platelet Count 339 X 10*3/uL (140-440); RBC 5.01 X 10*6/uL (4.10-5.20); RDW 12.8 % (11.5-14.5); WBC 9.22 X 10*3/uL (4.50-10.00)
[2023-02-23 17:52] LABS: BUN/Creat Ratio 14.33 Ratio (12.00-20.00); Blood Urea Nitrogen 12.9 mg/dL (9.0-27.0); Chloride 106 mmol/L (96-109); Glucose 96 mg/dL (70-110); Potassium 5.5 mmol/L (3.5-5.5); Sodium 141 mmol/L (135-145)
[2023-02-23 17:53] LABS: ALT 15 U/L (8-44); AST 17 U/L (13-35); Albumin 4.8 d/dL (3.8-4.9); Albumin/Globulin Ratio 2.09 Ratio (1.60-3.17); Alkaline Phosphatase 80 U/L (41-126); Calcium 10.4 mg/dL (8.7-10.3); Carbon Dioxide 21.4 mmol/L (21.6-31.8); Globulin 2.3 d/dL (1.6-3.3); Total Bilirubin 0.5 mg/dL (0.3-1.2); Total Protein 7.1 d/dL (6.2-8.2)
== END | disposition home or self-care (01) ==
LOC: LABWHC1 09:10
PROVIDERS: ATTEND Nurse Practitioner Family
DX: B18.2 Chronic viral hepatitis C (principal)
CPT/HCPCS: 36415; 80053; 85025; 86803

== ENCOUNTER → 2023-03-02 | Outpatient (CLI) | payer OTHER | END | disposition home or self-care (01) | LOC: LABWHC1 09:22 | PROVIDERS: ATTEND Internal Medicine Gastroenterology | DX: B18.2 Chronic viral hepatitis C (principal) | CPT/HCPCS: 36415; 87522 ==

== ENCOUNTER 2023-11-15 11:41 | Emergency (ER) | payer OTHER ==
[2023-11-15 11:45] VITALS: RESP 18
--- NOTE | 2023-11-15 12:29 | ED ---
General Adult HPI - General Chief complaint: Abdominal Pain Stated complaint: Abd/back pain Time Seen by Provider: 11/15/23 11:59 Source: patient, RN notes reviewed Mode of arrival: ambulatory Limitations: no limitations - History of Present Illness Initial comments: 43-year-old female presents to the emergency department for evaluation of right lower quadrant abdominal pain x 2 to 3 days. Patient states that the pain started in her back about 2 weeks ago and has progressively gotten worse. She states that the pain is mostly in her right flank and now radiates to her right lower abdomen. She admits to nausea and vomiting yesterday along with diarrhea. She admits to chills. She denies any current medications. - Related Data Home Medications Medication Instructions Recorded Confirmed Acetaminophen [Tylenol] 1,000 mg PO Q4-6H PRN 04/26/20 12/01/20 Ibuprofen [Motrin Ib] 800 mg PO Q8H PRN 04/26/20 12/01/20 Allergies Allergy/AdvReac Type Severity Reaction Status Date / Time amoxicillin Allergy Anaphylaxis Verified 11/15/23 11:46 Penicillins Allergy Anaphylaxis Verified 11/15/23 11:46 Review of Systems ROS Statement: Those systems with pertinent positive or pertinent negative responses have been documented in the HPI. ROS Other: All systems not noted in ROS Statement are negative. Past Medical History Past Medical History: Fibromyalgia Additional Past Medical History / Comment(s): chiari malformation, osteopenia, migraines, vertigo,chronic neck/shoulder pain History of Any Multi-Drug Resistant Organisms: None Reported Additional Past Surgical History / Comment(s): D&C Past Psychological History: Anxiety, Bipolar, Depression, PTSD Smoking Status: Current every day smoker Past Alcohol Use History: Occasional Past Drug Use History: Marijuana, Methamphetamine General Exam Limitations: no limitations General appearance: alert, in no apparent distress Head exam: Present: atraumatic, normocephalic, normal inspection Eye exam: Present: normal appearance, PERRL, EOMI. Absent: scleral icterus, conjunctival injection, periorbital swelling ENT exam: Present: normal exam, mucous membranes moist Respiratory exam: Present: normal lung sounds bilaterally. Absent: respiratory distress, wheezes, rales, rhonchi, stridor Cardiovascular Exam: Present: regular rate, normal rhythm, normal heart sounds. Absent: systolic murmur, diastolic murmur, rubs, gallop, clicks GI/Abdominal exam: Present: soft, tenderness (RLQ ), normal bowel sounds. Absent: distended, guarding, rebound, rigid Extremities exam: Present: normal inspection, full ROM, normal capillary refill. Absent: tenderness, pedal edema, joint swelling, calf tenderness Back exam: Present: normal inspection Neurological exam: Present: alert, oriented X3 Psychiatric exam: Present: normal affect, normal mood Skin exam: Present: warm, dry, intact, normal color. Absent: rash Course Vital Signs 11/15/23 11:42 Temperature 97.4 F L Pulse Rate 91 Respiratory 18 Rate Blood Pressure 174/104 O2 Sat by Pulse 99 Oximetry Medical Decision Making - Medical Decision Making Was pt. sent in by a medical professional or institution (, PA, ELECTRIC RANGE SERVICER, urgent care, hospital, or long-term...) When possible be specific @ -Urgent care Did you speak to anyone other than the patient for history (EMS, parent, family, police, friend...)? What history was obtained from this source @ -No Did you review nursing and triage notes (agree or disagree)? Why? @ -I reviewed and agree with nursing and triage notes Were old charts reviewed (outside hosp., previous admission, EMS record, old EKG, old radiological studies, urgent care reports/EKG's, long-term records)? Report findings @ -No old charts were reviewed Differential Diagnosis (chest pain, altered mental status, abdominal pain women, abdominal pain men, vaginal bleeding, weakness, fever, dyspnea, syncope, headache, dizziness, GI bleed, back pain, seizure, CVA, palpatations, mental health, musculoskeletal)? @ -Differential Abdominal Pain Women: Appendicitis, Cholecystitis, diverticulosis, ischemic bowel, pancreatitis, hepatitis, UTI, gastroenteritis, AAA, incarcerated hernia, bowel obstruction, constipation, inflammatory bowel, hepatitis, peptic ulcer disease, splenic infarction, perforated viscus, vulvitis, ovarian torsion, PID, kidney stone, placenta abruption, this is not meant to be an all-inclusive list EKG interpreted by me (3pts min.). @ -None X-rays interpreted by me (1pt min.). @ -None done CT interpreted by me (1pt min.). @ -CT abdomen pelvis shows no evidence of acute process U/S interpreted by me (1pt. min.). @ -None done What testing was considered but not performed or refused? (CT, X-rays, U/S, labs)? Why? @ -None What meds were considered but not given or refused? Why? @ -None Did you discuss the management of the patient with other professionals (professionals i.e. , PA, ELECTRIC RANGE SERVICER, lab, RT, psych nurse, renal social worker, correctional manager, teacher, chief scientific officer, case packer)? Give summary @ -No Was smoking cessation discussed for >3mins.? @ -No Was critical care preformed (if so, how long)? @ -No Were there social determinants of health that impacted care today? How? (Homelessness, low income, unemployed, alcoholism, drug addiction, transportation, low edu. Level, literacy, decrease access to med. care, correction, rehab)? @ -No Was there de-escalation of care discussed even if they declined (Discuss DNR or withdrawal of care, Hospice)? DNR status @ -No What co-morbidities impacted this encounter? (DM, HTN, Smoking, COPD, CAD, Cancer, CVA, ARF, Chemo, Hep., AIDS, mental health diagnosis, sleep apnea, morbid obesity)? @ -None Was patient admitted / discharged? Hospital course, mention meds given and route, prescriptions, significant lab abnormalities, going to OR and other pertinent info. @ -Discharge. Patient presented to the emergency department for evaluation of right lower abdominal pain. Laboratory studies obtained. No significant leukocytosis, sodium and potassium within normal limits, creatinine 0.73, lactic acid 1.1; UA shows no evidence of infectious process, no blood, negative urine hCG. CT abdomen pelvis was obtained which shows no evidence of acute process. Patient was given a dose of Toradol while in the emergency department which did improve her symptoms temporarily. She was given another dose prior to discharge. Advised patient to follow-up with her primary care provider and to monitor her blood pressure. She is understanding agreeable with plan. Patient stable at time of discharge. Case discussed with Dr. Cuevas Undiagnosed new problem with uncertain prognosis? @ -No Drug Therapy requiring intensive monitoring for toxicity (Heparin, Nitro, Insulin, Cardizem)? @ -No Were any procedures done? @ -No Diagnosis/symptom? @ -Flank pain, abdominal pain Acute, or Chronic, or Acute on Chronic? @ -Acute Uncomplicated (without systemic symptoms) or Complicated (systemic symptoms)? @ -Uncomplicated Side effects of treatment? @ -No Exacerbation, Progression, or Severe Exacerbation? @ -No Poses a threat to life or bodily function? How? (Chest pain, [place], [place], pneumonia, PE, COPD, DKA, ARF, appy, cholecystitis, CVA, Diverticulitis, Homicidal, Suicidal, threat to staff... and all critical care pts) @ -No - Lab Data Result diagrams: 11/15/23 12:32 11/15/23 13:07 Lab Results 11/15/23 11/15/23 11/15/23 Range/Units 12:32 12:32 12:32 WBC 9.4 (3.8-10.6) k/uL RBC 4.97 (3.80-5.40) m/uL Hgb 16.3 H (11.4-16.0) gm/dL Hct 50.5 H (34.0-46.0) % MCV 101.6 H (80.0-100.0) fL MCH 32.7 (25.0-35.0) pg MCHC 32.2 (31.0-37.0) g/dL RDW 12.5 (11.5-15.5) % Plt Count 323 (150-450) k/uL MPV 8.1 Neutrophils % 77 % Lymphocytes % 16 % Monocytes % 2 % Eosinophils % 2 % Basophils % 1 % Neutrophils # 7.3 (1.3-7.7) k/uL Lymphocytes # 1.5 (1.0-4.8) k/uL Monocytes # 0.2 (0-1.0) k/uL Eosinophils # 0.2 (0-0.7) k/uL Basophils # 0.1 (0-0.2) k/uL Sodium (137-145) mmol/L Potassium (3.5-5.1) mmol/L Chloride (98-107) mmol/L Carbon Dioxide (22-30) mmol/L Anion Gap mmol/L BUN (7-17) mg/dL Creatinine (0.52-1.04) mg/dL Est GFR (CKD-EPI)AfAm (>60 ml/min/1.73 sqM) Est GFR (CKD-EPI)NonAf (>60 ml/min/1.73 sqM) Glucose (74-99) mg/dL Plasma Lactic Acid [place] (0.7-2.0) mmol/L Calcium (8.4-10.2) mg/dL Total Bilirubin (0.2-1.3) mg/dL AST (14-36) U/L ALT (4-34) U/L Alkaline Phosphatase (38-126) U/L Total Protein (6.3-8.2) g/dL Albumin (3.5-5.0) g/dL Amylase (30-110) U/L Lipase (23-300) U/L Urine Color Colorless Urine Appearance Clear (Clear) Urine pH 5.5 (5.0-8.0) Ur Specific [place] 1.003 (1.001-1.035) Urine Protein Negative (Negative) Urine Glucose (UA) Negative (Negative) Urine Ketones Negative (Negative) Urine Blood Negative (Negative) Urine Nitrite Negative (Negative) Urine Bilirubin Negative (Negative) Urine Urobilinogen <2.0 (<2.0) mg/dL Ur Leukocyte Esterase Negative (Negative) Urine HCG, Qual Not Detected (Not Detectd) 11/15/23 11/15/23 Range/Units 12:32 13:07 WBC (3.8-10.6) k/uL RBC (3.80-5.40) m/uL Hgb (11.4-16.0) gm/dL Hct (34.0-46.0) % MCV (80.0-100.0) fL MCH (25.0-35.0) pg MCHC (31.0-37.0) g/dL RDW (11.5-15.5) % Plt Count (150-450) k/uL MPV Neutrophils % % Lymphocytes % % Monocytes % % Eosinophils % % Basophils % % Neutrophils # (1.3-7.7) k/uL Lymphocytes # (1.0-4.8) k/uL Monocytes # (0-1.0) k/uL Eosinophils # (0-0.7) k/uL Basophils # (0-0.2) k/uL Sodium 138 (137-145) mmol/L Potassium 4.0 (3.5-5.1) mmol/L Chloride 115 H (98-107) mmol/L Carbon Dioxide 20 L (22-30) mmol/L Anion Gap 3 mmol/L BUN 8 (7-17) mg/dL Creatinine 0.73 (0.52-1.04) mg/dL Est GFR (CKD-EPI)AfAm >90 (>60 ml/min/1.73 sqM) Est GFR (CKD-EPI)NonAf >90 (>60 ml/min/1.73 sqM) Glucose 97 (74-99) mg/dL Plasma Lactic Acid [place] 1.1 (0.7-2.0) mmol/L Calcium 9.2 (8.4-10.2) mg/dL Total Bilirubin 0.7 (0.2-1.3) mg/dL AST 19 (14-36) U/L ALT 12 (4-34) U/L Alkaline Phosphatase 69 (38-126) U/L Total Protein 6.5 (6.3-8.2) g/dL Albumin 4.2 (3.5-5.0) g/dL Amylase 64 (30-110) U/L Lipase 67 (23-300) U/L Urine Color Urine Appearance (Clear) Urine pH (5.0-8.0) Ur Specific [place] (1.001-1.035) Urine Protein (Negative) Urine Glucose (UA) (Negative) Urine Ketones (Negative) Urine Blood (Negative) Urine Nitrite (Negative) Urine Bilirubin (Negative) Urine Urobilinogen (<2.0) mg/dL Ur Leukocyte Esterase (Negative) Urine HCG, Qual (Not Detectd) Disposition Clinical Impression: Abdominal pain Disposition: HOME SELF-CARE Condition: Stable Instructions (If sedation given, give patient instructions): Abdominal Pain (ED) Additional Instructions: Please monitor your blood pressure at home. Do not drive or operate heavy [employer] while taking muscle relaxers. Return to the emergency department for new or worsening symptoms. Is patient prescribed a controlled substance at d/c from ED?: No Referrals: None,Stated [Primary Care Provider] - 1-2 days
[2023-11-15] MEDS: SODIUM CHLORIDE 0.9% 1,000 ML IV STA (12:41)
[2023-11-15 12:52] LABS: Basophils # (A) 0.1 k/uL (0-0.2); Basophils % (A) 1 %; Eosinophils # (A) 0.2 k/uL (0-0.7); Eosinophils % (A) 2 %; HCT 50.5 % (34.0-46.0); HGB 16.3 gm/dL (11.4-16.0); Lymphocytes # (A) 1.5 k/uL (1.0-4.8); Lymphocytes % (A) 16 %; MCH 32.7 pg (25.0-35.0); MCHC 32.2 g/dL (31.0-37.0); MCV 101.6 fL (80.0-100.0); Mean Platelet Volume 8.1; Monocytes # (A) 0.2 k/uL (0-1.0); Monocytes % (A) 2 %; Neutrophils # (A) 7.3 k/uL (1.3-7.7); Neutrophils % (A) 77 %; Platelet Count 323 k/uL (150-450); RBC 4.97 m/uL (3.80-5.40); RDW 12.5 % (11.5-15.5); WBC 9.4 k/uL (3.8-10.6)
[2023-11-15] MEDS: KETOROLAC 15 MG/ML 1 ML VIAL IVP STA ×2 (12:54→14:40)
[2023-11-15 13:11] LABS: Appearance,Urine Clear (Clear); Bilirubin,Urine Negative (Negative); Blood,Urine Negative (Negative); Color,Urine Colorless; Glucose,Urine (UA) Negative (Negative); Ketones,Urine Negative (Negative); Leukocyte Esterase,Urine Negative (Negative); Nitrite,Urine Negative (Negative); PH, Urine 5.5 (5.0-8.0); Protein,Urine Negative (Negative); Specific Gravity,Urine 1.003 (1.001-1.035); Urobilinogen,Urine <2.0 mg/dL (<2.0)
[2023-11-15 13:41] LABS: ALT 12 U/L (4-34); AST 19 U/L (14-36); African American GFR (CKD) >90 (>60 ml/min/1.73 sqM); Albumin 4.2 g/dL (3.5-5.0); Alkaline Phosphatase 69 U/L (38-126); Amylase 64 U/L (30-110); Anion Gap 3 mmol/L; Blood Urea Nitrogen 8 mg/dL (7-17); Calcium 9.2 mg/dL (8.4-10.2); Carbon Dioxide 20 mmol/L (22-30); Chloride 115 mmol/L (98-107); Glucose 97 mg/dL (74-99); Lipase 67 U/L (23-300); Non-African American GFR(CKD) >90 (>60 ml/min/1.73 sqM); Sodium 138 mmol/L (137-145); Total Bilirubin 0.7 mg/dL (0.2-1.3); Total Protein 6.5 g/dL (6.3-8.2)
--- NOTE | 2023-11-15 14:24 | CT ---
EXAMINATION TYPE: CT abdomen pelvis w con CT DLP: 548.1 mGycm, Automated exposure control for dose reduction was used. DATE OF EXAM: 11/15/2023 1:51 PM COMPARISON: 12/01/2021 CLINICAL INDICATION:Female, 43 years old with history of Rt flank, RLQ pain; abd pain TECHNIQUE: Axial CT abdomen pelvis w con;Sagittal and coronal reformats were created on a separate w orkstation. Contrast used:100 mL of Isovue 300 with IV Contrast, (none if empty) Oral contrast used: without Oral Contrast (none if empty) FINDINGS: LOWER CHEST: Unremarkable ABDOMEN LIVER: Unremarkable GALLBLADDER AND BILE DUCTS: Unremarkable. PANCREAS: Unremarkable. SPLEEN: Unremarkable. ADRENAL GLANDS: Unremarkable. KIDNEYS AND URETERS: No evidence of hydronephrosis or renal calculus. The ureters are unremarkable. PELVIS BLADDER: Unremarkable REPRODUCTIVE: Unremarkable. ABDOMEN & PELVIS STOMACH AND BOWEL: No evidence of bowel obstruction. Appendix is normal. PERITONEUM/RETROPERITONEUM: No evidence of pneumoperitoneum or free fluid. VASCULATURE: No evidence of aortic aneurysm. MUSCULOSKELETAL: No acute osseous abnormalities LYMPH NODES: No gross evidence for lymphadenopathy. SOFT TISSUE/ABDOMINAL WALL: Unremarkable IMPRESSION: No evidence for obstructive uropathy or renal calculus. The appendix is normal.
[2023-11-15] MEDS: HYDROcodone/APAP 5-325MG 1 EACH TAB PO STA (14:26)
[2023-11-15] MEDS: CYCLOBENZAPRINE 10MG STARTER 3 TAB BTL PO STA (14:45)
[2023-11-15] MEDS: ACET/COD 300 MG/30 MG STARTER PACK 6 TAB BTL PO STA (14:45)
[2023-11-15 14:48] VITALS: BP 151/90; PULSE 76; TEMP 98.1
== END 2023-11-15 14:48 | disposition home or self-care (01) ==
LOC: EC 11:41
DX: R10.31 Right lower quadrant pain (principal); F17.200 Nicotine dependence, unspecified, uncomplicated; Z88.0 Allergy status to penicillin
CPT/HCPCS: 36415; 80053; 82150; 83605; 83690; 85025; 81003; 81025; 74177; 99284; 96374; 96361 ×2; J1885; Q9967

== ENCOUNTER 2024-03-11 17:24 | Emergency (ER) | payer OTHER ==
[2024-03-11 17:31] VITALS: RESP 18
--- NOTE | 2024-03-11 18:00 | ED ---
Back Pain HPI - General Chief Complaint: Back Pain/Injury Stated Complaint: back pain Time Seen by Provider: 03/11/24 17:41 Source: patient, RN notes reviewed, old records reviewed Limitations: no limitations - History of Present Illness Initial Comments: This is a 43-year-old female to the ER for evaluation of abdominal pain back pain right flank pain, prior recent evaluation with CT scan negative, patient has persistent pain here in the ER worse at work today MD Complaint: back pain -: hour(s) Similar Symptoms Previously: Yes Place: home Radiation: none Severity: moderate Severity scale (1-10): 7 Quality: sharp, stabbing Consistency: constant Improves With: none Worsens With: none Associated Symptoms: denies other symptoms Treatments Prior to Arrival: other (0) - Related Data Home Medications Medication Instructions Recorded Confirmed Acetaminophen [Tylenol] 1,000 mg PO Q4-6H PRN 04/26/20 12/01/20 Ibuprofen [Motrin Ib] 800 mg PO Q8H PRN 04/26/20 12/01/20 Allergies Allergy/AdvReac Type Severity Reaction Status Date / Time amoxicillin Allergy Anaphylaxis Verified 03/11/24 17:31 Penicillins Allergy Anaphylaxis Verified 03/11/24 17:31 Review of Systems ROS Statement: Those systems with pertinent positive or pertinent negative responses have been documented in the HPI. ROS Other: All systems not noted in ROS Statement are negative. Past Medical History Past Medical History: Fibromyalgia Additional Past Medical History / Comment(s): chiari malformation, osteopenia, migraines, vertigo,chronic neck/shoulder pain History of Any Multi-Drug Resistant Organisms: None Reported Additional Past Surgical History / Comment(s): D&C Past Psychological History: Anxiety, Bipolar, Depression, PTSD Smoking Status: Current every day smoker Past Alcohol Use History: Occasional Past Drug Use History: Marijuana, Methamphetamine General Exam Limitations: no limitations General appearance: alert, in no apparent distress Head exam: Present: atraumatic, normocephalic, normal inspection Eye exam: Present: normal appearance, PERRL, EOMI. Absent: scleral icterus, conjunctival injection, periorbital swelling ENT exam: Present: normal exam, mucous membranes moist Neck exam: Present: normal inspection. Absent: tenderness, meningismus, lymphadenopathy Respiratory exam: Present: normal lung sounds bilaterally. Absent: respiratory distress, wheezes, rales, rhonchi, stridor Cardiovascular Exam: Present: regular rate, normal rhythm, normal heart sounds. Absent: systolic murmur, diastolic murmur, rubs, gallop, clicks GI/Abdominal exam: Present: soft, normal bowel sounds. Absent: distended, tenderness, guarding, rebound, rigid Extremities exam: Present: normal inspection, full ROM, normal capillary refill. Absent: tenderness, pedal edema, joint swelling, calf tenderness Back exam: Present: normal inspection Neurological exam: Present: alert, oriented X3, CN II-XII intact Psychiatric exam: Present: normal affect, normal mood Skin exam: Present: warm, dry, intact, normal color. Absent: rash Course Vital Signs 03/11/24 03/11/24 17:28 18:49 Temperature 98 F 98.7 F Pulse Rate 103 H 86 Respiratory 18 18 Rate Blood Pressure 125/84 137/88 O2 Sat by Pulse 100 99 Oximetry - Reevaluation(s) Reevaluation #1: 03/11/24 17:59 Medical records reviewed Reevaluation #2: 03/11/24 17:59 Patient symptoms unchanged Reevaluation #3: 03/11/24 18:00 Patient informed of results and questions answered Reevaluation #4: Was pt. sent in by a medical professional or institution (, PA, TAVERN KEEPER, urgent care, hospital, or long term...) When possible be specific @ -no Did you speak to anyone other than the patient for history (EMS, parent, family, police, friend...)? What history was obtained from this source @ -no Did you review nursing and triage notes (agree or disagree)? Why? @ -agree Are old charts reviewed (outside hosp., previous admission, EMS record, old EKG, old radiological studies, urgent care reports/EKG's, long term records)? Report findings @ -yes Differential Diagnosis (chest pain, altered mental status, abdominal pain women, abdominal pain men, vaginal bleeding, weakness, fever, dyspnea, syncope, headac he, dizziness, GI bleed, back pain, seizure, CVA, palpatations, mental health, musculoskeletal)? @ -prior EKG interpreted by me (3pts min.). @ -no X-rays interpreted by me (1pt min.). @ -no CT interpreted by me (1pt min.). @ -no U/S interpreted by me (1pt. min.). @ -no What testing was considered but not performed or refused? (CT, X-rays, U/S, labs)? Why? @ -none What meds were considered but not given or refused? Why? @ -none Did you discuss the management of the patient with other professionals (professionals i.e. , PA, TAVERN KEEPER, lab, RT, psych nurse, dialysis social worker, assistant portfolio manager, teacher, physics technical officer, classification case manager)? Give summary @ -no Was smoking cessation discussed for >3mins.? @ -no Was critical care preformed (if so, how long)? @ -no Were there social determinants of health that impacted care today? How? (Homelessness, low income, unemployed, alcoholism, drug addiction, transportation, low edu. Level, literacy, decrease access to med. care, long term, rehab)? @ -none Was there de-escalation of care discussed even if they declined (Discuss DNR or withdrawal of care, Hospice)? DNR status @ -no What co-morbidities impacted this encounter? (DM, HTN, Smoking, COPD, CAD, Cancer, CVA, ARF, Chemo, Hep., AIDS, mental health diagnosis, sleep apnea, morbid obesity)? @ -none Was patient admitted / discharged? Hospital course, mention meds given and route, prescriptions, significant lab abnormalities, going to OR and other pertinent info. @ - 43 female to the ER for evaluation of back pain severe acute on chronic back pain worsening although controlled here in the ER no neurological symptoms patient can be discharged home Discharge Undiagnosed new problem with uncertain prognosis? @ -no Drug Therapy requiring intensive monitoring for toxicity (Heparin, Nitro, Insulin, Cardizem)? @ -no Were any procedures done? @ -no Diagnosis/symptom? @ -Chronic back pain Acute, or Chronic, or Acute on Chronic? @ -Acute Uncomplicated (without systemic symptoms) or Complicated (systemic symptoms)? @ -Complicated Side effects of treatment? @ -no Exacerbation, Progression, or Severe Exacerbation? @ -exacerbation Poses a threat to life or bodily function? How? (Chest pain, [place], [place], pneumonia, PE, COPD, DKA, ARF, appy, cholecystitis, CVA, Diverticulitis, Homicidal, Suicidal, threat to staff... and all critical care pts) @ -no Reevaluation #5: Differential Back Pain: Strain, zoster, cauda equina syndrome, epidural abscess, vertebral osteomyelitis, discitis, fracture, subluxation, disc herniation, DJD, spinal stenosis, dissection, AAA, pancreatitis, peptic ulcer disease, pyelonephritis, kidney stone, this is not meant to be an all-inclusive list. Medical Decision Making - Medical Decision Making 43 female to the ER for evaluation of back pain severe acute on chronic back pain worsening although controlled here in the ER no neurological symptoms patient can be discharged home Disposition Clinical Impression: Mechanical back pain, Lumbar radiculopathy Disposition: HOME SELF-CARE Condition: Fair Instructions (If sedation given, give patient instructions): Acute Low Back Pain (ED) Is patient prescribed a controlled substance at d/c from ED?: No Referrals: Edwin Crum DO [Primary Care Provider] - 1-2 days Time of Disposition: 18:00
[2024-03-11] MEDS: IBUPROFEN 800 MG TAB PO STA (18:09)
[2024-03-11] MEDS: traMADol 50 MG TAB PO STA (18:10)
[2024-03-11] MEDS: dexAMETHasone 2 MG TAB PO STA (18:11)
[2024-03-11] MEDS: IBUPROFEN 600 MG STARTER PACK 4 TAB BTL PO STA (18:12)
[2024-03-11] MEDS: traMADol 50 MG STARTER PACK 3 TAB BTL PO STA (18:12)
[2024-03-11] MEDS: HYDROmorphone 1 MG/ML 1 ML SYRINGE IM STA (18:13)
[2024-03-11 18:51] VITALS: BP 137/88; PULSE 86; TEMP 98.7
== END 2024-03-11 18:51 | disposition home or self-care (01) ==
LOC: EC 17:24
DX: G89.29 Other chronic pain (principal); M54.50 Low back pain, unspecified; M54.16 Radiculopathy, lumbar region; F17.200 Nicotine dependence, unspecified, uncomplicated; Z88.0 Allergy status to penicillin
CPT/HCPCS: 99283; 96372; J1171; J8540

== ENCOUNTER 2024-05-24 13:25 | Observation (INO) | payer OTHER ==
--- NOTE | 2024-05-24 14:53 | ED ---
General Adult HPI - General Chief complaint: Dizziness Stated complaint: dizziness Time Seen by Provider: 05/24/24 14:09 Source: patient, EMS Mode of arrival: EMS Limitations: no limitations - History of Present Illness Initial comments: Patient is a 44-year-old female with a past medical history of hypertension, smoking, presenting today for vision changes. Patient states he was sitting on the couch when she began to see "kaleidoscope vision" out of her left peripheral visual field. This became accompanied by a sensation of palm sweating and short ness of breath. Patient states that she started to feel panicky and thought she may have had a panic attack but denies new stressors or a trigger for a panic attack. She called her friend who lives far away and told her to call EMS. Notes that while on the phone with her friend she felt like she was having trouble forming words. Patient does have a significant family history of a brother who had a heart attack at a young age, sister who had a stroke in her 40s. She denied chest pain, new numbness, or focal weakness. States has been having these episodes of "kaleidescope vision" intermittently throughout the year and has not had any type of workup for them. Denies associated headache or MORENO currently. Denies fevers, nausea, vomiting. - Related Data Home Medications Medication Instructions Recorded Confirmed Acetaminophen [Tylenol] 1,000 mg PO Q4-6H PRN 04/26/20 05/24/24 Ibuprofen [Motrin] 600 mg PO DAILY PRN 05/24/24 05/24/24 amLODIPine [Norvasc] 5 mg PO HS 05/24/24 05/24/24 methocarbamoL [Robaxin] 500 mg PO TID PRN 05/24/24 05/24/24 Previous Rx's Medication Instructions Recorded Folic Acid 1 mg PO DAILY #90 tab 05/26/24 Thiamine [Vitamin B-1] 100 mg PO DAILY #90 tab 05/26/24 Topiramate [Topamax] See Rx Instructions .ROUTE 05/26/24 .COMPLEX #120 cap Allergies Allergy/AdvReac Type Severity Reaction Status Date / Time amoxicillin Allergy Anaphylaxis Verified 05/24/24 16:44 Penicillins Allergy Anaphylaxis Verified 05/24/24 16:44 Review of Systems ROS Statement: Those systems with pertinent positive or pertinent negative responses have been documented in the HPI. ROS Other: All systems not noted in ROS Statement are negative. Past Medical History Past Medical History: Fibromyalgia Additional Past Medical History / Comment(s): chiari malformation, osteopenia, migraines, vertigo,chronic neck/shoulder pain History of Any Multi-Drug Resistant Organisms: None Reported Additional Past Surgical History / Comment(s): D&C Past Psychological History: Anxiety, Bipolar, Depression, PTSD Smoking Status: Current every day smoker Past Alcohol Use History: Occasional Past Drug Use History: Marijuana, Methamphetamine General Exam - General Exam Comments Initial Comments: PE: CONSTITUTIONAL: [no apparent distress, well appearing] SKIN: [warm, dry, no jaundice, hives or petechiae] EYES:[ pupils are equally round, extraocular movements intact without nystagmus, clear conjunctiva, non-icteric sclera] HENT: [normocephalic, atraumatic, moist mucus membranes, oropharynx clear without exudates] NECK: , [Full range of motion, normal appearance] PULMONARY: [clear to auscultation without wheezes, rhonchi, or rales, normal excursion, no accessory muscle use and no stridor] CARDIOVASCULAR:[ regular rate, rhythm, normal S1 and S2. No appreciated murmurs, rubs or gallops. Strong radial pulses with intact distal perfusion. No lower extremity edema] GASTROINTESTINAL: [soft, active bowel sounds throughout, non-tender, non- distended, no palpable masses, no rebound or guarding. No hepatosplenomegaly] GENITOURINARY: MUSCULOSKELETAL: [Extremities have no gross deformity, no edema, redness, or swelling. No calf swelling ] NEUROLOGIC: [_a/o x 3, GCS 15, normal mentation and speech. Moves all extremities x 4 without motor or sensory deficit cranial nerves: II (visual daley without defects), III, IV and (extraocular movements are intact, pupils are equal with normal reaction to light), V (intact facial sensation and jaw opening), VII (no facial droop), IX and X (normal palate movement, midline uvula, normal voice), XI (symmetrical shoulder shrug and lateral head rotation against resistance), XII (midline tongue protrusion). Motor strength is 5/5 in all extremities. No abnormal movements. Normal muscle tone. Sensation to light touch is intact bilaterally. No cerebellar signs (ybdamn-qa-dyyx, asge-bi-yewk are normal)] PSYCHIATRIC:[ _normal mood and affect, thought process is clear and linear] Limitations: no limitations Course Vital Signs 05/24/24 05/24/24 05/24/24 13:29 16:21 19:43 Temperature 98.3 F 98.9 F Pulse Rate 90 103 H 97 Respiratory 20 18 20 Rate Blood Pressure 129/91 123/86 124/86 O2 Sat by Pulse 99 97 97 Oximetry 05/24/24 20:40 Temperature 97.6 F Pulse Rate 89 Respiratory 18 Rate Blood Pressure 129/88 O2 Sat by Pulse 98 Oximetry EKG Findings - EKG Comments: EKG Findings:: Sinus rhythm, rate 80 bpm IL interval 129 ms, QT/QTc 348/385 ms, normal axis, no ST elevations or depressions, no arrhythmia Medical Decision Making - Medical Decision Making Was pt. sent in by a medical professional or institution (, PA, OCULAR PATHOLOGIST, urgent care, hospital, or correction...) When possible be specific @ -No Did you speak to anyone other than the patient for history (EMS, parent, family, police, friend...)? What history was obtained from this source @ -No Did you review nursing and triage notes (agree or disagree)? Why? @ -I reviewed nursing and triage notes Were old charts reviewed (outside hosp., previous admission, EMS record, old EKG , old radiological studies, urgent care reports/EKG's, correction records)? Report findings @ -Medical records reviewed Differential Diagnosis (chest pain, altered mental status, abdominal pain women, abdominal pain men, vaginal bleeding, weakness, fever, dyspnea, syncope, headache, dizziness, GI bleed, back pain, seizure, CVA, palpatations, mental health, musculoskeletal)? Differential diagnosis remains broad however top considerations include TIA, brain tumor, atypical migraine, Wernicke's encephalopathy, seizure, multiple sclerosis, hypoglycemia, Guillain-Guzman, electrolytes disturbance, myasthenia gravis.... This is not meant to be an all-inclusive list EKG interpreted by me (3pts min.). @ -As above X-rays interpreted by me (1pt min.). No cardiomegaly, consolidations or pleural effusions CT interpreted by me (1pt min.). @ -I see no evidence of hemorrhage or mass on CT brain U/S interpreted by me (1pt. min.). @ -None done What testing was considered but not performed or refused? (CT, X-rays, U/S, labs)? Why? CTA was considered however pt's symptoms have since resolved, NIH 0 and pt likely requires MRI brain for further evaluation of symptoms What meds were considered but not given or refused? Why? @ -None Did you discuss the management of the patient with other professionals (professionals i.e. , PA, OCULAR PATHOLOGIST, lab, RT, psych nurse, licensed clinical social worker, licensed clinical social worker, teacher, community cultural development officer, case resource manager)? Give summary @ -No Was smoking cessation discussed for >3mins.? @ -No Was critical care preformed (if so, how long)? @ -No Were there social determinants of health that impacted care today? How? (Homelessness, low income, unemployed, alcoholism, drug addiction, transportation, low edu. Level, literacy, decrease access to med. care, shelter, rehab)? @ -No Was there de-escalation of care discussed even if they declined (Discuss DNR or withdrawal of care, Hospice)? @ -No What co-morbidities impacted this encounter? (DM, HTN, Smoking, COPD, CAD, Cancer, CVA, ARF, Chemo, Hep., AIDS, mental health diagnosis, sleep apnea, morbid obesity)? @ Smoking, HTN Was patient admitted / discharged? Hospital course, mention meds given and route, prescriptions, significant lab abnormalities, going to OR and other pertinent info. Admission- Patient is a 44-year female past medical history smoking, hypertension presenting today for left sided visual field changes, that had since resolved. Complete history and physical exam performed, no neuro deficits on exam. Patient's history is concerning for possible TIA. Given patient's risk factors and family history I anticipate admission for TIA workup. Will obtain CT brain, given patient no longer has any focal neurologic deficits [place] has intermittent changes in vision over the last year, ultimately anticipate patient will require an MRI. Additionally obtain comprehensive labs including and chest x-ray. Patient agreeable plan of care. Labs and imaging reviewed. Grossly within normal limits. Abnormal values not concerning for acute pathology related to presenting complaint. Discussed findings w/ pt and plan for admission. Patient agreeable plan with plan for admission Discussed with Fred Major, kindly except patient for admission. Undiagnosed new problem with uncertain prognosis? @ -No Drug Therapy requiring intensive monitoring for toxicity (Heparin, Nitro, Insulin, Cardizem)? @ -No Were any procedures done? @ -No Diagnosis/symptom? @Left sided visual field changes Acute, or Chronic, or Acute on Chronic? @ acute Uncomplicated (without systemic symptoms) or Complicated (systemic symptoms)? @complicated Side effects of treatment? @ -No Exacerbation, Progression, or Severe Exacerbation? @ -No Poses a threat to life or bodily function? How? (Chest pain, USA, SC, pneumonia, PE, COPD, DKA, ARF, appy, cholecystitis, CVA, Diverticulitis, Homicidal, Suicidal, threat to staff... and all critical care pts) @ yes, if pt's symptoms are ultimately attributed to a TIA, this could indicate increased risk for major CVA, which would cause considerable increased risk of morbidity and mortality - Lab Data Result diagrams: 05/24/24 15:02 05/24/24 15:02 Lab Results 05/24/24 05/24/24 05/24/24 Range/Units 15:02 15:02 15:02 WBC 8.9 (3.8-10.6) k/uL RBC 4.51 (3.80-5.40) m/uL Hgb 14.6 (11.4-16.0) gm/dL Hct 44.1 (34.0-46.0) % MCV 97.6 (80.0-100.0) fL MCH 32.4 (25.0-35.0) pg MCHC 33.2 (31.0-37.0) g/dL RDW 11.8 (11.5-15.5) % Plt Count 341 (150-450) k/uL MPV 7.2 Neutrophils % 79 % Lymphocytes % 12 % Monocytes % 5 % Eosinophils % 2 % Basophils % 0 % Neutrophils # 7.0 (1.3-7.7) k/uL Lymphocytes # 1.0 (1.0-4.8) k/uL Monocytes # 0.4 (0-1.0) k/uL Eosinophils # 0.2 (0-0.7) k/uL Basophils # 0.0 (0-0.2) k/uL PT 10.3 (10.0-12.5) sec INR 0.9 (<1.2) Sodium (137-145) mmol/L Potassium (3.5-5.1) mmol/L Chloride (98-107) mmol/L Carbon Dioxide (22-30) mmol/L Anion Gap mmol/L BUN (7-17) mg/dL Creatinine (0.52-1.04) mg/dL Est GFR (CKD-EPI)AfAm (>60 ml/min/1.73 sqM) Est GFR (CKD-EPI)NonAf (>60 ml/min/1.73 sqM) Glucose (74-99) mg/dL Estimated Ave Glu mg/dL mg/dL Hemoglobin A1c (<=6.0) % Calcium (8.4-10.2) mg/dL Total Bilirubin (0.2-1.3) mg/dL AST (14-36) U/L ALT (4-34) U/L Alkaline Phosphatase (38-126) U/L Troponin I (0.000-0.034) ng/mL Total Protein (6.3-8.2) g/dL Albumin (3.5-5.0) g/dL Triglycerides (0.00-149.00) mg/dL Cholesterol (0.00-200.00) mg/dL LDL Cholesterol, Calc (0.0-131.0) mg/dL VLDL Cholesterol, Calc (5.00-40.00) mg/dL HDL Cholesterol (40.00-60.00) mg/dL Cholesterol/HDL Ratio Ratio Urine Color Colorless Urine Appearance Clear (Clear) Urine pH 5.5 (5.0-8.0) Ur Specific [place] 1.005 (1.001-1.035) Urine Protein Negative (Negative) Urine Glucose (UA) Negative (Negative) Urine Ketones Negative (Negative) Urine Blood Negative (Negative) Urine Nitrite Negative (Negative) Urine Bilirubin Negative (Negative) Urine Urobilinogen <2.0 (<2.0) mg/dL Ur Leukocyte Esterase Negative (Negative) Urine Opiates Screen (Negative) Urine Methadone Screen (Negative) Ur Propoxyphene Screen (Negative) Urine Barbiturates (Negative) Ur Phencyclidine Scrn (Negative) Ur Amphetamine Screen (Negative) U Benzodiazepines Scrn (Negative) Urine Cocaine Screen (Negative) U Cannabinoids Screen (Negative) Urine Alcohol (Negative) U Creatinine Drug Scrn (>=20.0) mg/dL 05/24/24 05/24/24 05/24/24 Range/Units 15:02 15:02 15:02 WBC (3.8-10.6) k/uL RBC (3.80-5.40) m/uL Hgb (11.4-16.0) gm/dL Hct (34.0-46.0) % MCV (80.0-100.0) fL MCH (25.0-35.0) pg MCHC (31.0-37.0) g/dL RDW (11.5-15.5) % Plt Count (150-450) k/uL MPV Neutrophils % % Lymphocytes % % Monocytes % % Eosinophils % % Basophils % % Neutrophils # (1.3-7.7) k/uL Lymphocytes # (1.0-4.8) k/uL Monocytes # (0-1.0) k/uL Eosinophils # (0-0.7) k/uL Basophils # (0-0.2) k/uL PT (10.0-12.5) sec INR (<1.2) Sodium 140 (137-145) mmol/L Potassium 4.2 (3.5-5.1) mmol/L Chloride 109 H (98-107) mmol/L Carbon Dioxide 22 (22-30) mmol/L Anion Gap 9 mmol/L BUN 11 (7-17) mg/dL Creatinine 0.75 (0.52-1.04) mg/dL Est GFR (CKD-EPI)AfAm >90 (>60 ml/min/1.73 sqM) Est GFR (CKD-EPI)NonAf >90 (>60 ml/min/1.73 sqM) Glucose 86 (74-99) mg/dL Estimated Ave Glu mg/dL 103 mg/dL Hemoglobin A1c 5.2 (<=6.0) % Calcium 9.8 (8.4-10.2) mg/dL Total Bilirubin 0.5 (0.2-1.3) mg/dL AST 19 (14-36) U/L ALT 15 (4-34) U/L Alkaline Phosphatase 67 (38-126) U/L Troponin I <0.012 (0.000-0.034) ng/mL Total Protein 7.0 (6.3-8.2) g/dL Albumin 4.6 (3.5-5.0) g/dL Triglycerides (0.00-149.00) mg/dL Cholesterol (0.00-200.00) mg/dL LDL Cholesterol, Calc (0.0-131.0) mg/dL VLDL Cholesterol, Calc (5.00-40.00) mg/dL HDL Cholesterol (40.00-60.00) mg/dL Cholesterol/HDL Ratio Ratio Urine Color Urine Appearance (Clear) Urine pH (5.0-8.0) Ur Specific [place] (1.001-1.035) Urine Protein (Negative) Urine Glucose (UA) (Negative) Urine Ketones (Negative) Urine Blood (Negative) Urine Nitrite (Negative) Urine Bilirubin (Negative) Urine Urobilinogen (<2.0) mg/dL Ur Leukocyte Esterase (Negative) Urine Opiates Screen (Negative) Urine Methadone Screen (Negative) Ur Propoxyphene Screen (Negative) Urine Barbiturates (Negative) Ur Phencyclidine Scrn (Negative) Ur Amphetamine Screen (Negative) U Benzodiazepines Scrn (Negative) Urine Cocaine Screen (Negative) U Cannabinoids Screen (Negative) Urine Alcohol (Negative) U Creatinine Drug Scrn (>=20.0) mg/dL 05/24/24 05/24/24 Range/Units 15:02 15:02 WBC (3.8-10.6) k/uL RBC (3.80-5.40) m/uL Hgb (11.4-16.0) gm/dL Hct (34.0-46.0) % MCV (80.0-100.0) fL MCH (25.0-35.0) pg MCHC (31.0-37.0) g/dL RDW (11.5-15.5) % Plt Count (150-450) k/uL MPV Neutrophils % % Lymphocytes % % Monocytes % % Eosinophils % % Basophils % % Neutrophils # (1.3-7.7) k/uL Lymphocytes # (1.0-4.8) k/uL Monocytes # (0-1.0) k/uL Eosinophils # (0-0.7) k/uL Basophils # (0-0.2) k/uL PT (10.0-12.5) sec INR (<1.2) Sodium (137-145) mmol/L Potassium (3.5-5.1) mmol/L Chloride (98-107) mmol/L Carbon Dioxide (22-30) mmol/L Anion Gap mmol/L BUN (7-17) mg/dL Creatinine (0.52-1.04) mg/dL Est GFR (CKD-EPI)AfAm (>60 ml/min/1.73 sqM) Est GFR (CKD-EPI)NonAf (>60 ml/min/1.73 sqM) Glucose (74-99) mg/dL Estimated Ave Glu mg/dL mg/dL Hemoglobin A1c (<=6.0) % Calcium (8.4-10.2) mg/dL Total Bilirubin (0.2-1.3) mg/dL AST (14-36) U/L ALT (4-34) U/L Alkaline Phosphatase (38-126) U/L Troponin I (0.000-0.034) ng/mL Total Protein (6.3-8.2) g/dL Albumin (3.5-5.0) g/dL Triglycerides 136.00 (0.00-149.00) mg/dL Cholesterol 256.00 H (0.00-200.00) mg/dL LDL Cholesterol, Calc 152.3 H (0.0-131.0) mg/dL VLDL Cholesterol, Calc 27.20 (5.00-40.00) mg/dL HDL Cholesterol 76.50 H (40.00-60.00) mg/dL Cholesterol/HDL Ratio 3.35 Ratio Urine Color Urine Appearance (Clear) Urine pH (5.0-8.0) Ur Specific [place] (1.001-1.035) Urine Protein (Negative) Urine Glucose (UA) (Negative) Urine Ketones (Negative) Urine Blood (Negative) Urine Nitrite (Negative) Urine Bilirubin (Negative) Urine Urobilinogen (<2.0) mg/dL Ur Leukocyte Esterase (Negative) Urine Opiates Screen Negative (Negative) Urine Methadone Screen Negative (Negative) Ur Propoxyphene Screen Negative (Negative) Urine Barbiturates Negative (Negative) Ur Phencyclidine Scrn Negative (Negative) Ur Amphetamine Screen Negative (Negative) U Benzodiazepines Scrn Negative (Negative) Urine Cocaine Screen Negative (Negative) U Cannabinoids Screen Positive A (Negative) Urine Alcohol Negative (Negative) U Creatinine Drug Scrn 31.0 (>=20.0) mg/dL Disposition Clinical Impression: Vision changes Disposition: ADMITTED IP TO THIS HOSP Condition: Stable
[2024-05-24] MEDS: SODIUM CHLORIDE 0.9% 1,000 ML IV STA (14:59)
[2024-05-24 15:10] LABS: Basophils % (A) 0 %; Eosinophils # (A) 0.2 k/uL (0-0.7); Eosinophils % (A) 2 %; HCT 44.1 % (34.0-46.0); HGB 14.6 gm/dL (11.4-16.0); Lymphocytes % (A) 12 %; MCH 32.4 pg (25.0-35.0); MCHC 33.2 g/dL (31.0-37.0); MCV 97.6 fL (80.0-100.0); Mean Platelet Volume 7.2; Monocytes # (A) 0.4 k/uL (0-1.0); Monocytes % (A) 5 %; Neutrophils % (A) 79 %; Platelet Count 341 k/uL (150-450); RBC 4.51 m/uL (3.80-5.40); RDW 11.8 % (11.5-15.5); WBC 8.9 k/uL (3.8-10.6)
[2024-05-24 15:21] LABS: ALT 15 U/L (4-34); AST 19 U/L (14-36); African American GFR (CKD) >90 (>60 ml/min/1.73 sqM); Albumin 4.6 g/dL (3.5-5.0); Alkaline Phosphatase 67 U/L (38-126); Anion Gap 9 mmol/L; Blood Urea Nitrogen 11 mg/dL (7-17); Calcium 9.8 mg/dL (8.4-10.2); Carbon Dioxide 22 mmol/L (22-30); Chloride 109 mmol/L (98-107); Glucose 86 mg/dL (74-99); Non-African American GFR(CKD) >90 (>60 ml/min/1.73 sqM); Potassium 4.2 mmol/L (3.5-5.1); Sodium 140 mmol/L (137-145); Total Bilirubin 0.5 mg/dL (0.2-1.3)
--- NOTE | 2024-05-24 15:34 | XR ---
EXAMINATION TYPE: XR chest 2V DATE OF EXAM: 05/24/2024 3:13 PM COMPARISON: None CLINICAL INDICATION: Female, 44 years old with history of shortness of breath; [facility] TECHNIQUE: XR chest 2V Frontal and lateral views of the chest. FINDINGS: Lungs/Pleura: There is no evidence of pleural effusion, focal consolidation, or pneumothorax. Pulmonary vascularity: Unremarkable. Heart/mediastinum: Cardiomediastinal silhouette is unremarkable. Musculoskeletal: No acute osseous pathology. IMPRESSION: No acute cardiopulmonary disease/process. [facility], , 05/24/2024 3:31 PM
--- NOTE | 2024-05-24 15:37 | CT ---
EXAMINATION TYPE: CT brain wo con DATE OF EXAM: 05/24/2024 3:13 PM COMPARISON: None. CLINICAL INDICATION: Female, 44 years old with history of intermittent left eye vision changes, c/o d izziness TECHNIQUE: Brain: Axial CT images of the brain were obtained with coronal and sagittal reformats created and rev iewed. Contrast used: None. Oral contrast used: None. CT DLP: 1082.7 mGycm, Automated exposure control for dose reduction was used. FINDINGS: Brain: Extra-axial spaces: No abnormal extra-axial fluid collections. Ventricular system: Within normal limits Cerebral parenchyma: No acute intraparenchymal hemorrhage or mass effect. The lebron-white junction is well differentiated. Cerebellum: Unremarkable. Mass effect: No evidence of midline shift. Intracranial vasculature: unremarkable Soft tissues: Normal. Calvarium/osseous structures: No depressed skull fracture. Paranasal sinuses and mastoid air cells: Mild scattered paranasal sinus disease. Visualized orbits: Orbital contents are intact. IMPRESSION: No acute intracranial process. [facility], , 05/24/2024 3:34 PM
[2024-05-24 15:41] LABS: INR 0.9 (<1.2); Prothrombin Time 10.3 sec (10.0-12.5)
[2024-05-24 15:44] LABS: Appearance,Urine Clear (Clear); Bilirubin,Urine Negative (Negative); Blood,Urine Negative (Negative); Color,Urine Colorless; Glucose,Urine (UA) Negative (Negative); Ketones,Urine Negative (Negative); Leukocyte Esterase,Urine Negative (Negative); Nitrite,Urine Negative (Negative); PH, Urine 5.5 (5.0-8.0); Protein,Urine Negative (Negative); Specific Gravity,Urine 1.005 (1.001-1.035); Urobilinogen,Urine <2.0 mg/dL (<2.0)
[2024-05-24] MEDS ORDERED: MAG HYDROX/AL HYDROX/SIMETH 30 ML CUP PO PRN (17:37)
[2024-05-24] MEDS ORDERED: ALPRAZolam 0.25 MG TAB PO PRN (17:37)
[2024-05-24] MEDS ORDERED: traMADol 50 MG TAB PO PRN (17:37)
[2024-05-24] MEDS ORDERED: NALOXONE 0.4 MG/ML 1 ML VIAL IV PRN (17:37)
[2024-05-24] MEDS ORDERED: CALCIUM CARBONATE 500 MG CHEWABLE PO PRN (17:37)
[2024-05-24] MEDS ORDERED: LORazepam 0.5 MG TAB PO PRN (18:27)
[2024-05-24] MEDS ORDERED: LORazepam 1 MG TAB PO PRN ×2 (18:27)
--- NOTE | 2024-05-24 18:31 | P.HPIM ---
History of Present Illness H&P Date: 05/24/24 Patient is a 44-year-old female with PMH of tobacco use disorder ([id number] smoking history), history of methamphetamine abuse, cocaine abuse-currently denies, cannabis abuse (current user), alcohol use disorder, history of psychiatric hospitalization for that, HTN, who presented to the ER with visual disturbances that she described as seeing colitis, out of the left peripheral visual field that started around 05/24 while she was sitting on the couch, reports associated anxiety, pulsating, shortness of breath. She also noted to have speech slurring. Patient reports having similar episodes affecting her left lower right eye, mostly left, usually lasting couple minutes, but this time more than 1 hour that prompted her to call EMS. She denies any dizziness, lightheadedness, extremity weakness, sensation changes. Patient has chronic headache, daily, has been taking ibuprofen daily for 3 months. Also reports that she had lost a spot from her left lateral visual field years ago, she is not sure why and was never evaluated for this. She drinks 2-3 beers a day, no history of withdrawal, DTs. Patient reports that in EMS her blood pressure went up to 190s. Of note, patient has positive family history of young stroke in her sister in her 40s, brother who had a heart attack at a young age to. ED course: Afebrile, BP 129/91, satting well on room air, heart rate in the 90s. Lab work showed unremarkable CBC and CMP, negative UA EKG showed sinus rhythm with no ST changes . Brain CTWith no acute intracranial process. Chest x-ray negative. Patient's symptoms resolved, given her positive family history, risk factors, she will be admitted as FOR neuro evaluation, TTE, brain MRI Pertinent positives and negatives as discussed in HPI, a complete review of systems was performed and all other systems are negative. Patient seen and examined at bedside. Vital signs reviewed General: nontoxic, no distress, appears at stated age Derm: warm, dry Head: atraumatic, normocephalic, symmetric Eyes: EOMI, no lid lag, anicteric sclera, pupils equal round reactive to light ENT: Nose and ears atraumatic Neck: No thyromegaly, supple Mouth: no lip lesion, mucus membranes moist Cardiovascular: S1S2 reg, no murmur, no edema Lungs: clear to auscultation bilateral, no rhonchi, no rales, no wheeze, no accessory muscle use Abdominal: soft, nontender to palpation, no guarding, no appreciable organomegaly Ext: no gross muscle atrophy, muscle strength muscle strength 5 out of 5 in all 4 extremities, no contractures Neuro: CN II-XII grossly intact. NIH0 Psych: Alert, oriented, appropriate affect Assessment/Plan: Episode of left eye visual disturbance and slurred speech, CVA rule out Positive family history of her stroke and CAD at young age Chronic headaches HTN Tobacco use disorder -Neurology consulted, appreciate recommendations -Brain MRI, TTE -Telemetry -A1c, lipid panel -Permissive hypertension for 24 to 48 hours, resume home BP meds after -Counseled on smoking cessation, nicotine patch ordered -Counseled on cessation from daily ibuprofen use that can cause worsening of the symptoms Alcohol use disorder -CIWA protocol with Ativan -Multivitamins, thiamine, folic acid History of methamphetamine, cocaine, cannabis abuse The patient is admitted with an anticipated [greater] than 2 midnight stay as [inpatient/observation] status for evaluation of CVA rule out CODE STATUS full code DVT prophylaxis: Lovenox Anticipated discharge date: 05/[address]: Home A total of [] minutes was spent on the care of this complex patient more than 50% of the time was spent in counseling and care coordination. Past Medical History Past Medical History: Fibromyalgia Additional Past Medical History / Comment(s): chiari malformation, osteopenia, migraines, vertigo,chronic neck/shoulder pain History of Any Multi-Drug Resistant Organisms: None Reported Additional Past Surgical History / Comment(s): D&C Past Psychological History: Anxiety, Bipolar, Depression, PTSD Smoking Status: Current every day smoker Past Alcohol Use History: Occasional Past Drug Use History: Marijuana, Methamphetamine Medications and Allergies Home Medications Medication Instructions Recorded Confirmed Type Acetaminophen [Tylenol] 1,000 mg PO Q4-6H PRN 04/26/20 05/24/24 History Ibuprofen [Motrin] 600 mg PO DAILY PRN 05/24/24 05/24/24 History amLODIPine [Norvasc] 5 mg PO HS 05/24/24 05/24/24 History methocarbamoL [Robaxin] 500 mg PO TID PRN 05/24/24 05/24/24 History Allergies Allergy/AdvReac Type Severity Reaction Status Date / Time amoxicillin Allergy Anaphylaxis Verified 05/24/24 16:44 Penicillins Allergy Anaphylaxis Verified 05/24/24 16:44 Physical Exam Vitals: Vital Signs Temp Pulse Resp BP Pulse Ox 05/24/24 16:21 103 H 18 123/86 97 05/24/24 13:29 98.3 F 90 20 129/91 99 Intake and Output 05/24/24 05/24/24 05/24/24 06:59 14:59 22:59 Other: Weight 61.235 kg Results CBC & Chem 7: 05/24/24 15:02 05/24/24 15:02 Labs: Abnormal Lab Results - Last 24 Hours (Table) 05/24/24 Range/Units 15:02 Chloride 109 H (98-107) mmol/L
[2024-05-24] MEDS: NICOTINE 21MG/24HR PATCH TRANSDERM STA (19:55)
[2024-05-24] MEDS: ASPIRIN 325 MG TAB PO STA (19:58)
[2024-05-24] MEDS: ACETAMINOPHEN TAB 325 MG TAB PO PRN (19:58)
[2024-05-24 22:47] LABS: Urine Alcohol Negative (Negative); Urine Barbiturate Negative (Negative); Urine Cocaine Negative (Negative); Urine Methadone Negative (Negative); Urine Opiates Negative (Negative); Urine Phencyclidine Negative (Negative)
[2024-05-24] MEDS: amLODIPine 5 MG TAB PO SCH (22:47)
[2024-05-24] MEDS: FAMOTIDINE 20 MG TAB PO SCH (22:47)
[2024-05-24 22:48] LABS: Chol/HDL Ratio 3.35 Ratio; LDL Cholesterol,Calculated 152.3 mg/dL (0.0-131.0)
[2024-05-25] MEDS: NICOTINE 21MG/24HR PATCH TRANSDERM SCH (08:48)
[2024-05-25] MEDS: FOLIC ACID 1 MG TAB PO SCH (08:48)
[2024-05-25] MEDS: ENOXAPARIN 40 MG/0.4 ML SYRINGE SQ SCH (08:48)
[2024-05-25] MEDS: THIAMINE 100 MG TAB PO SCH (08:48)
[2024-05-25] MEDS: ASPIRIN 81 MG PO SCH (08:48)
[2024-05-25] MEDS: ATORVASTATIN 40 MG TAB PO SCH (08:48)
--- NOTE | 2024-05-25 14:35 | P.PN ---
Subjective Progress Note Date: 05/25/24 Hospital Course: Patient is a 44-year-old female with PMH of tobacco use disorder ([id number] smoking history), history of methamphetamine abuse, cocaine abuse-currently denies, cannabis abuse (current user), alcohol use disorder, history of psychiatric hospitalization for that, HTN, who presented to the ER with visual disturbances that she described as seeing colitis, out of the left peripheral visual field that started around 05/24 while she was sitting on the couch, reports associated anxiety, pulsating, shortness of breath. She also noted to have speech slurring. Patient reports having similar episodes affecting her left lower right eye, mostly left, usually lasting couple minutes, but this time more than 1 hour that prompted her to call EMS. She denies any dizziness, lightheadedness, extremity weakness, sensation changes. Patient has chronic headache, daily, has been taking ibuprofen daily for 3 months. Also reports that she had lost a spot from her left lateral visual field years ago, she is not sure why and was never evaluated for this. She drinks 2-3 beers a day, no history of withdrawal, DTs. Patient reports that in EMS her blood pressure went up to 190s. Of note, patient has positive family history of young stroke in her sister in her 40s, brother who had a heart attack at a young age to. ED course: Afebrile, BP 129/91, satting well on room air, heart rate in the 90s. Lab work showed unremarkable CBC and CMP, negative UA EKG showed sinus rhythm with no ST changes . Brain CTWith no acute intracranial process. Chest x-ray negative. Patient's symptoms resolved, given her positive family history, risk factors, she will be admitted as FOR neuro evaluation, TTE, brain MRI -pending as of 05/25. No significant complaints today, mild headache present. A1c normal, cholesterol and LDL elevated. Continue aspirin and atorvastatin. Pertinent Imaging: No new imaging Subjective: Feeling better today, no visual disturbances reported, mild headache present Pertinent positives and negatives as discussed above, a complete review of systems was performed and all other systems are negative. Vitals Signs Reviewed. General: [nontoxic], [no distress], [appears at stated age] Derm: [warm], [dry] Head: [atraumatic], [normocephalic], [symmetric] Eyes: [EOMI], [no lid lag], [anicteric sclera] Mouth: [no lip lesion], [mucus membranes moist] Cardiovascular: [S1S2 reg], [no murmur] Lungs: [CTA bilateral], [no rhonchi, no rales] , [no accessory muscle use] Abdominal: [soft], [ nontender to palpation], [no guarding], [no appreciable organomegaly] Ext: [no gross muscle atrophy], [no edema], [no contractures] Neuro: [ CN II-XI grossly intact], [no focal neuro deficits] Psych: [Alert], [oriented], [appropriate affect] Data Reviewed Today: Pertinent Labs: Lipid profile as mentioned in hospital course, A1c normal, urine toxicology positive for cannabinoids Imaging: No new imaging Assessment and Plan: Episode of left eye visual disturbance and slurred speech, CVA rule out Positive family history of her stroke and CAD at young age Chronic headaches HTN Hyperlipidemia Tobacco use disorder -Neurology consulted, appreciate recommendations -Brain MRI, TTE -Telemetry -Continue aspirin, atorvastatin -Continue home amlodipine, might need adjustment in the outpatient settings -Counseled on smoking cessation, nicotine patch ordered -Counseled on cessation from daily ibuprofen use that can cause worsening of the symptoms Alcohol use disorder -CIWA protocol with Ativan -Multivitamins, thiamine, folic acid History of methamphetamine, cocaine, cannabis abuse CODE STATUS full code DVT prophylaxis: Lovenox Anticipated discharge date: 05/[address]: Home Objective - Vital Signs Vital signs: Vital Signs Temp 98.3 F 05/25/24 07:00 Pulse 88 05/25/24 07:00 Resp 16 05/25/24 07:00 BP 145/100 05/25/24 07:00 Pulse Ox 98 05/25/24 07:00 FiO2 Intake & Output 05/24/24 05/25/24 05/25/24 18:59 06:59 18:59 Intake Total 118 Balance 118 Weight 61.235 kg 61.235 kg Intake: Oral 118 Other: # Voids 5 - Labs CBC & Chem 7: 05/24/24 15:02 05/24/24 15:02 Labs: Abnormal Lab Results - Last 24 Hours (Table) 05/24/24 05/24/24 05/24/24 Range/Units 15:02 15:02 15:02 Chloride 109 H (98-107) mmol/L Cholesterol 256.00 H (0.00-200.00) mg/dL LDL Cholesterol, Calc 152.3 H (0.0-131.0) mg/dL HDL Cholesterol 76.50 H (40.00-60.00) mg/dL U Cannabinoids Screen Positive A (Negative)
[2024-05-25] MEDS: methocarbamoL 500 MG TAB PO PRN (15:15)
[2024-05-25] MEDS: NICOTINE 21MG/24HR PATCH TRANSDERM STA (18:38)
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
--- NOTE | 2024-05-26 10:36 | CT ---
EXAMINATION TYPE: CT angio head neck DATE OF EXAM: 05/26/2024 10:04 AM COMPARISON:: 05/24/2024. CLINICAL INDICATION: Female, 44 years old with history of visual disturbance, r/o tia; PHH, visual di sturbances r/o tia TECHNIQUE: Axially acquired helical CT angiogram of the head and neck was obtained with contrast. Axi al images are supplemented with 3D reconstructions and MIP images which were post-processed at an in dependent workstation. NASCET criteria used. Contrast used:65 mL of Isovue 370 with IV Contrast, Oral contrast used: None. CT DLP: 346 mGycm, Automated exposure control for dose reduction was used. FINDINGS: CTA HEAD: No evidence of acute intracranial hemorrhage, mass effect, or midline shift. The ventricles, sulci, a nd cisterns are unremarkable. Vertebral arteries: The vertebral arteries are patent. Vertebral artery dominance: Codominant Basilar artery: The basilar artery is intact. The basilar artery bifurcation is normal. Internal Carotid arteries: The cervical, petrous, cavernous and supraclinoid segments are normal. TIRSO: Patent with no evidence of aneurysm. Azygous anterior cerebral artery. ACOM: Present without evidence of aneurysm. MCA: Patent with no evidence of aneurysm. CUR[employer] MUSEUM: Patent with no evidence of aneurysm. PCOM: Hypoplastic bilaterally. Dural sinuses: Patent. CTA NECK: Right Carotid System: The common carotid artery and external carotid artery are patent. The carotid bifurcation demonstrate s no evidence of hemodynamically significant stenosis. The remaining portions of the internal carotid artery demonstrate normal size without significant narrowing. Left Carotid System: The common carotid artery and external carotid artery are patent. The carotid bifurcation demonstrate s no evidence of hemodynamically significant stenosis. The remaining portions of the internal carotid artery demonstrate normal size without significant narrowing. Vertebral arteries are patent without evidence hemodynamically significant stenosis. There is a three-vessel aortic arch. The origins of the great vessels are patent. No evidence of hemo dynamically significant stenosis. IMPRESSION: 1. No evidence of dissection of the cervical internal carotid arteries or vertebral arteries. 2. No any evidence of significant stenosis at the carotid bifurcations. 3. No evidence of intracranial high-grade stenosis or intracranial aneurysm. 4. Azygous anterior cerebral artery. [facility], , 05/26/2024 10:34 AM
--- NOTE | 2024-05-26 10:46 | MR ---
EXAMINATION TYPE: MR brain wo con DATE OF EXAM: 05/26/2024 10:15 AM COMPARISON: 02/28/2022. CLINICAL INDICATION: Female, 44 years old with history of CVA; PHH, Dizziness, evaluate for CVA. TECHNIQUE: Multi planar, multi sequence imaging was performed through the brain including: T1, T2, In version recovery, Diffusion weighted imaging, and gradient echo imaging. No gadolinium was given. FINDINGS: The lebron-white junctions, ventricular system, basal cisterns appear unremarkable. scattered foci of high T2 signal intensity are seen within the periventricular white matter. Some of these may be new from prior. Midline structures show no abnormality. Diffusion-weighted imaging shows no evidence of r estricted diffusion. The susceptibility weighted images do not reveal any evidence for micro-hemorrha ge. The bone marrow signal is within normal limits. Paranasal sinuses and mastoid air cells: No significant paranasal sinus disease. Visualized orbits: Orbital contents are intact. IMPRESSION: 1. No evidence of intracranial mass or acute/subacute infarct. 2. Few scattered Nonspecific white matter changes, findings could be sequela of migraines versus les s likely demyelination. Couple more spots compared to prior in . [facility], , 05/26/2024 10:44 AM
[2024-05-26 14:46] VITALS: BP 102/67; PULSE 81; RESP 16; TEMP 98.5
--- NOTE | 2024-05-26 15:21 | P.DS ---
Providers Date of admission: 05/24/24 17:37 Expected date of discharge: 05/26/24 Attending physician: Yuki Melton MD Consults: 05/24/24 17:37 Consult Physician Routine Consulting Provider: Gregory Pompa Consult Reason/Comments: TIA Do you want consulting provider notified?: Yes, Notify in am Primary care physician: Edwin Crum Hospital Course: Discharge Diagnosis: Migraine headaches, chronic Suspected underlying seizure disorder Episode of left eye visual disturbance and slurred speech, CVA unlikely Positive family history of her stroke and CAD at young age Hypertension Hyperlipidemia Tobacco use disorder Alcohol use disorder History of methamphetamine, cocaine, cannabis abuse Hospital Course: Patient is a 44-year-old female with PMH of tobacco use disorder ([id number] smoking history), history of methamphetamine abuse, cocaine abuse-currently denies, cannabis abuse (current user), alcohol use disorder, history of psychiatric hospitalization for that, HTN, who presented to the ER with visual disturbances that she described as seeing colitis, out of the left peripheral visual field that started around 05/24 while she was sitting on the couch, reports associated anxiety, pulsating, shortness of breath. She also noted to have speech slurring. Patient reports having similar episodes affecting her left lower right eye, mostly left, usually lasting couple minutes, but this time more than 1 hour that prompted her to call EMS. She denies any dizziness, lightheadedness, extremity weakness, sensation changes. Patient has chronic headache, daily, has been taking ibuprofen daily for 3 months. Also reports that she had lost a spot from her left lateral visual field years ago, she is not sure why and was never evaluated for this. She drinks 2-3 beers a day, no history of withdrawal, DTs. Patient reports that in EMS her blood pressure went up to 190s. Of note, patient has positive family history of young stroke in her sister in her 40s, brother who had a heart attack at a young age to. ED course: Afebrile, BP 129/91, satting well on room air, heart rate in the 90s. Lab work showed unremarkable CBC and CMP, negative UA EKG showed sinus rhythm with no ST changes Brain CT with no acute intracranial process. Chest x-ray negative. Patient's symptoms resolved, given her positive family history, risk factors, she will be admitted as FOR neuro evaluation, TTE, brain MRI -pending as of 05/25. No significant complaints today, mild headache present. A1c normal, cholesterol and LDL elevated. Continue aspirin and atorvastatin. 05/25/2024: Feeling better today, no visual disturbances reported, mild headache present. 05/26/2024: Patient seen and examined at bedside. No acute complaints. No events overnight. Brain MRI displayed no evidence of intracranial mass or acute/subacute infarct. Angiography CT displayed no evidence of dissection of the cervical internal carotid arteries or vertebral arteries, no evidence of intracranial high-grade stenosis or intracranial aneurysm, no evidence of significant stenosis at the carotid bifurcation. Patient will follow-up outpatient for EEG results. Cleared by neurology. Patient was informed to refrain from driving for 6 months and will need workup for possible seizures. Patient is being discharged with topiramate, thiamine, folic acid. Patient will follow-up PCP and neurologist. Patient is being discharged home. Pertinent positives and negatives as discussed above, a complete review of systems was performed and all other systems are negative. Vital signs reviewed and stable. Physical examination: Vital signs reviewed General: nontoxic, no distress, appears at stated age Derm: warm, dry, intact Head: atraumatic, normocephalic, symmetric Eyes: EOMI, anicteric sclera Mouth: no lip lesion, mucus membranes moist Cardiovascular: S1 S2 reg, no murmur, rubs, or gallops Lungs: CTA bilateral, no rhonchi, no rales, no accessory muscle use Abdominal: soft, non-tender to palpataion, no appreciable organomegaly Extremities: no gross muscle atrophy, no edema, no contractures Neuro: Alert, Oriented, CNII-XII grossly intact, gait normal Psych: well appearing, appropriate affect A total of 38 minutes of time were spent preparing this complex discharge summary. Patient was discharge on 05/26/2024 at 14:54. Dictation was produced using [employer] dictation software. please excuse any grammatical, word or spelling errors. I have seen and evaluated the patient today. Discussed with the resident and agree with the residents finding and plan as documented in the resident's note. Changes highlighted in blue font. Plan - Discharge Summary New Discharge Prescriptions: New Thiamine [Vitamin B-1] 100 mg PO DAILY #90 tab Folic Acid 1 mg PO DAILY #90 tab Topiramate [Topamax] See Rx Instructions .ROUTE .COMPLEX #120 cap Continue Acetaminophen [Tylenol] 1,000 mg PO Q4-6H PRN PRN Reason: Pain methocarbamoL [Robaxin] 500 mg PO TID PRN PRN Reason: Muscle Spasm Ibuprofen [Motrin] 600 mg PO DAILY PRN PRN Reason: Severe Pain (Scale 7 To 10) amLODIPine [Norvasc] 5 mg PO HS Discharge Medication List Acetaminophen [Tylenol] 1,000 mg PO Q4-6H PRN 04/26/20 [History] Ibuprofen [Motrin] 600 mg PO DAILY PRN 05/24/24 [History] amLODIPine [Norvasc] 5 mg PO HS 05/24/24 [History] methocarbamoL [Robaxin] 500 mg PO TID PRN 05/24/24 [History] Folic Acid 1 mg PO DAILY #90 tab 05/26/24 [Rx] Thiamine [Vitamin B-1] 100 mg PO DAILY #90 tab 05/26/24 [Rx] Topiramate [Topamax] See Rx Instructions .ROUTE .COMPLEX #120 cap 05/26/24 [Rx] Follow up Appointment(s)/Referral(s): Jackie Burns MD [REFERRING] - 1 Week Edwin Crum DO [Primary Care Provider] - 1-2 days Patient Instructions/Handouts: Migraine Headache (ED), Epilepsy (DC) Activity/Diet/Wound Care/Special Instructions: Please refrain from using heavy machinery or driving for 6 months per [place] Law. You will need further work up for possible seizures. Discharge Disposition: HOME SELF-CARE
--- NOTE | 2024-05-26 17:48 | P.PN ---
Subjective Progress Note Date: 05/26/24 I am seeing the patient for the first time during this hospital admission. Please refer to Dr. Pompa's note for further details. Patient states that she disturbance with speech difficulty. She stated that this note was prolonged. She stated that usually is over the left eye and she feels it is like a k aleidoscope blurry vision on the left eye and then she has speech difficulty and this time she had her body she felt was shaky. Sometimes confused at times she will have headache and at times she does not have a headache associate with it. She will have about maybe 1-2 episode a week. She states that 1 time maybe about 2 to 3 years ago she passed out walk-in out from the fire pit and does not know how. She followed up with a neurologist as an outpatient migraine but has not returned since she did not feel she was getting the right care. Objective - Vital Signs Vital signs: Vital Signs Temp 98.5 F 05/26/24 14:45 Pulse 81 05/26/24 14:45 Resp 16 05/26/24 14:45 BP 102/67 05/26/24 14:45 Pulse Ox 97 05/26/24 14:45 FiO2 Intake & Output 05/25/24 05/26/24 05/26/24 18:59 06:59 18:59 Intake Total 354 221 Balance 354 221 Intake: Oral 354 221 Other: # Voids 3 1 3 # Bowel Movements 0 - Exam GENERAL: The patient is lying in bed and is not in acute distress. NEUROLOGICAL: Higher mental function: The patient is awake, alert, oriented to self, place and time. Patient is following commands. No aphasia and no neglect. Cranial nerves: The pupils are round, equal and reactive to light and accommodation. Visual daley are full to confrontation throughout. Extraocular movement is intact no nystagmus is noted. Facial sensation is normal to touch throughout. The facial strength is normal throughout. Hearing is normal b ilaterally to hand rub. Tongue is midline and moved [id number] without any difficulty. No dysarthria is noted. Motor: The strength is 5 over 5 throughout. Normal tone and bulk. Cerebellum: Normal finger to nose bilaterally. Sensation: Sensation is normal to touch throughout. - Labs CBC & Chem 7: 05/24/24 15:02 05/24/24 15:02 Assessment and Plan Assessment: Recurrent episodes of visual disturbance predominantly over the left eye with sweating, speech difficulty, physically she feels she is shaken and this episode was prolonged and at times she has a headache and at times she does not have a headache as well as had 1 episode of passing out that about 2 to 3 years ago of unknown etiology I am concerned about seizures. I am not convinced this is typical visual migraine since that time she does not have any headache associate with it and as well as she had a syncopal episode 2 to 3 years ago. History of migraines Hyperlipidemia Tobacco use Marijuana use Plan: Recommend starting the patient on Topamax 25 mg twice daily for the first 1 week and if patient tolerates the medication then go up to 2 tablets twice daily for the second week and keep on gradually going up 1 tablet twice daily on twelve 4 tablet twice daily by the fourth week. After the fourth week and transition to 100 mg tablet. Therefore after the fourth week patient to be on 100 mg 1 tablet twice daily. Patient was notified about the side effects of memory issues, paresthesias of the fingertips, visual disturbance, kidney issues. Patient was notified if she truly has seizures to avoid driving for 6-month per the [place] DMV until last seizure episodes. To avoid heights, avoid swimming unassisted or using heavy missionary Preliminary routine EEG shows sharply contoured activity over the right temporal over the T6 lead that can cause cortical irritability. No clear discharges or seizure MRI of the brain is negative for any acute intracranial mass or acute/subacute infarct. Recommend the patient to follow-up with a neurologist as an outpatient within 2 weeks Plan discussed with the patient and the primary team Otherwise no additional neurological workup Time with Patient: Less than 30
--- NOTE | 2024-05-27 00:49 | EEG ---
ELECTROENCEPHALOGRAM REPORT CLINICAL HISTORY: This is a 44-year-old woman with recurrent visual disturbance and speech difficulty. The video EEG is obtained to evaluate for seizure epileptiform activity. RELEVANT MEDICATIONS: 1. Ativan p.r.n. 2. Xanax p.r.n. EEG TYPE: This is a routine 21-channel EEG with video using the 10/20 electrode placement system. DESCRIPTION: Wakefulness is only obtained. During awake state, the posterior-dominant rhythm consists of qpa-pe-[id number] voltage of 11 to 11.5 hertz activity that is well modulated and well sustained. There is no physiological stage 2 sleep architecture. There is no focal slowing. DESCRIPTION: Wakefulness is only obtained. During awake state, the posterior-dominant rhythm consists of oex-zm-bnljexnw voltage of 11 to 11.5 hertz activity that is well modulated and well sustained. There is no physiological stage 2 sleep architecture. There is no focal slowing. Interictal and ictal, there appears to be sharply contoured activity over the right temporal more than the left and it appears stemming over the T6 lead. No clear epileptiform discharge, or seizure. ACTIVATION PROCEDURE: Photic stimulation did not evoke a posterior driving response. There is no abnormality during the photic stimulation. CLINICAL INTERPRETATION: This is an abnormal routine EEG. There is sharply contoured activity over predominantly the right temporal and is seen stemming over the T6 lead, which can increase risk for cortical irritability. No clear, epileptiform discharges or seizure on the EEG. I highly recommend a repeat EEG that is sleep-deprived or prolonged EEG and that can be considered as outpatient for further evaluation especially with recurrent symptoms. Clinical correlation is recommended. MMARACELYL / IJN: [id number] / [place]
== END 2024-05-26 15:25 | disposition home or self-care (01) ==
LOC: EC 13:25 → 6NMEDSUR 17:37
PROVIDERS: ADMIT Student in an Organized Health Care Education/Training Program; ATTEND Student in an Organized Health Care Education/Training Program
DX: G43.909 Migraine, unspecified, not intractable, without status migrainosus (principal); H53.9 Unspecified visual disturbance; R47.81 Slurred speech; I10 Essential (primary) hypertension; F31.9 Bipolar disorder, unspecified; F41.9 Anxiety disorder, unspecified; J44.9 Chronic obstructive pulmonary disease, unspecified; E78.5 Hyperlipidemia, unspecified; F10.10 Alcohol abuse, uncomplicated; F17.200 Nicotine dependence, unspecified, uncomplicated; F12.90 Cannabis use, unspecified, uncomplicated; Z79.899 Other long term (current) drug therapy; Z88.0 Allergy status to penicillin; Z82.3 Family history of stroke; Z82.49 Family history of ischemic heart disease and other diseases of the circulatory system
CPT/HCPCS: 96372 ×2; 96360; 99285; 36415; 94760; 95816; 93005; 80061; 80053; 84484; 85025; 85610; 81003; 80306; 83036; 71046; 70496; 70450; 70498; 70551; G0378 ×3; S4990 ×3; J1650 ×2; Q9967

== ENCOUNTER → 2024-08-08 | Outpatient (CLI) | payer OTHER ==
--- NOTE | 2024-08-11 07:28 | MM ---
Reason for Exam: Screening (asymptomatic). Patient History: Menarche at age 9. First Full-Term at age 15. Premenopausal. Currently using Hormonal Contraceptives, for 20 years. Paternal grandmother had breast cancer, age 30. Risk Values: Triny 5 year model risk: 0.7%. NCI Lifetime model risk: 7.6%. Tissue Density: The breasts are heterogeneously dense, which may obscure small masses. Findings: Analyzed By CAD. There is no suspicious group of microcalcifications or new suspicious mass in either breast. Overall Assessment: Negative, BI-RAD 1 Management: Screening Mammogram of both breasts in 1 year. . Patient should continue monthly self-breast exams. A clinical breast exam by your physician is recommended on an annual basis. This exam should not preclude additional follow-up of suspicious palpable abnormalities. Note on Triny scores and lifetime risk: 1. A Triny score greater than 3% is considered moderate risk. If this is the case, consider specialist referral to assess eligibility for a risk reducing agent. 2. If overall lifetime risk for the development of breast cancer is 20% or higher, the patient may qualify for future screening with alternating mammogram and breast MRI. [facility], , 08/11/2024 7:26 AM. Electronically signed and approved by: Sridhar Zuñiga M.D. Radiologis
== END | disposition home or self-care (01) ==
LOC: RADMAMWWP 14:16
PROVIDERS: ATTEND Internal Medicine
DX: Z12.31 Encounter for screening mammogram for malignant neoplasm of breast (principal); R92.333 Mammographic heterogeneous density, bilateral breasts; Z80.3 Family history of malignant neoplasm of breast
CPT/HCPCS: 77063; 77067

== ENCOUNTER → 2024-12-09 | Outpatient (CLI) | payer OTHER ==
--- NOTE | 2024-12-11 11:09 | MR ---
INDICATION: Patient age:Female; 44 years old; Reason for study: M54.50, M54.2; [facility]. COMPARISON: MRI brain/C-spine 02/28/2022. TECHNIQUE: Multi planar, multi sequence imaging was performed of the cervical spine. No Gadolinium wa s given. FINDINGS: Alignment: The cervical vertebral bodies have preserved heights. Alignment is within normal limits gi leonora patient positioning. Bones: Bone signal is within normal limits. Cord: The spinal cord is unremarkable with regards to their signal intensity and morphology. Discs: Multilevel disc desiccation is present without significant disc height loss. C2-C3: No significant disc pathology. The spinal canal is patent. No neural foraminal stenosis. C3-C4: No significant disc pathology. The spinal canal is patent. No neural foraminal stenosis. C4-C5: No significant disc pathology. The spinal canal is patent. No neural foraminal stenosis. C5-C6: Minimal broad-based disc bulge. No significant effacement of the anterior thecal sac. No spina l canal stenosis. No neural foraminal stenosis. C6-C7: Right paracentral disc protrusion superimposed upon a broad-based disc bulge resulting in mild effacement of the anterior thecal sac. No abutment of the ventral spinal cord. Results in minimal sp inal canal stenosis. No neural foraminal stenosis. No significant change to prior exam. C7-T1: No significant disc pathology. The spinal canal is patent. No neural foraminal stenosis. Other: None. IMPRESSION: Similar degenerative disc disease at C6-C7 with disc protrusion resulting in minimal spinal canal destini nosis. No other degenerative disc disease identified. TECHNIQUE: Multi planar, multi sequence imaging was performed of the lumbar spine. No gadolinium wa s given. FINDINGS: Alignment: The lumbar vertebral bodies have preserved heights and alignment. Cord: The conus medullaris and the distal spinal cord appear unremarkable with regards to their signa l intensity and morphology. Bones/Discs: Disc desiccation without significant disc height loss at L4-L5. Disc desiccation with pr ominent disc height loss at L5-S1. Type I Modic changes involving the endplates around the L5-S1 disc with associated increased STIR signal. The remaining bones and marrow signals within normal limits. L1-L2: No significant disc pathology. Spinal canal is patent. The neural foramen are patent. L2-L3: No significant disc pathology. Spinal canal is patent. The neural foramen are patent. L3-L4: No significant disc pathology. Spinal canal is patent. The neural foramen are patent. Mild enl argement of the bilateral facet joints. L4-L5: Minimal broad-based disc bulge . No significant spinal canal stenosis. Bilateral facet arthrop athy. No significant neural foraminal stenosis. L5-S1: Central disc protrusion with mild effacement of the anterior thecal sac. There is close proxim ity to the bilateral exiting S1 nerve roots. No significant spinal canal stenosis. Minimal bilateral neural foraminal narrowing. Mild enlargement of the bilateral facet joints. Other findings: None. IMPRESSION: 1. L5-S1 central disc protrusion with close proximity to the exiting bilateral S1 nerve roots. There is mild effacement of the anterior thecal sac without significant spinal canal stenosis. 2. Mild degenerative disc disease changes at L4-L5 without significant spinal canal or neural forami nal stenosis. No other degenerative disc disease. [facility], , 12/11/2024 11:07 AM
== END | disposition home or self-care (01) ==
LOC: RADMRIMAIN 21:15
PROVIDERS: ATTEND Orthopaedic Surgery
DX: M48.02 Spinal stenosis, cervical region (principal); M51.17 Intervertebral disc disorders with radiculopathy, lumbosacral region; M47.26 Other spondylosis with radiculopathy, lumbar region; M51.16 Intervertebral disc disorders with radiculopathy, lumbar region; M50.323 Other cervical disc degeneration at C6-C7 level; M50.223 Other cervical disc displacement at C6-C7 level
CPT/HCPCS: 72141; 72148